=== PATIENT | male | born 1940 | race Caucasian/White ===

== ENCOUNTER 2022-03-18 11:05 | Outpatient (REF) | payer MEDICARE, SELFPAY ==
[2022-03-18 14:04] LABS: Alanine Aminotransferase 20 U/L (0-40); Anion Gap 11 (12-20); Aspartate Amino Transferase 24 U/L (5-37); Blood Urea Nitrogen 17 mg/dL (9-16); Carbon Dioxide 27 mmol/L (22-29); Chloride 101 mmol/L (96-108); Estimated Glomerular Filt Rate > 60; Potassium 4.4 mmol/L (3.3-5.1); Sodium 135 mmol/L (135-145)
[2022-03-20 15:45] LABS: Cyclic Citrullinated Peptide <16 UNITS
== END 2022-03-18 11:06 | disposition home or self-care (01) ==
LOC: HO.10HDL 11:05
PROVIDERS: Visit Provider Family Medicine
DX: I10 Essential (primary) hypertension (principal); E78.00 Pure hypercholesterolemia, unspecified; M06.9 Rheumatoid arthritis, unspecified; Z79.899 Other long term (current) drug therapy
CPT/HCPCS: 36415; 80051; 82550; 82565; 84450; 84460; 84520; 86200

== ENCOUNTER 2022-04-24 09:27 | Outpatient (REF) | payer MEDICARE, SELFPAY ==
[2022-04-24 10:51] LABS: Alanine Aminotransferase 18 U/L (0-40); Aspartate Amino Transferase 22 U/L (5-37); Cholesterol 155 mg/dL; HDL Cholesterol 83 mg/dL; LDL Cholesterol Calculated 63 mg/dl; Triglycerides 49 mg/dL
[2022-04-27 04:52] LABS: Prolactin 8.1 ng/mL (2.0-18.0)
== END 2022-04-24 09:28 | disposition home or self-care (01) ==
LOC: HO.10HDL 09:27
PROVIDERS: Internal Medicine Cardiovascular Disease; Visit Provider Family Medicine
DX: E78.00 Pure hypercholesterolemia, unspecified (principal)
CPT/HCPCS: 36415; 80061; 84146; 84450; 84460

== ENCOUNTER 2023-12-21 12:31 | Outpatient (REF) | payer MEDICARE, SELFPAY ==
[2023-12-21 12:44] LABS: MANUAL DIFF FLAG NO
[2023-12-21 12:45] LABS: Basophils Percent Auto 0.5 % (0-2); Eosinophils Absolute Auto 0.1 X10*3/uL (0.0-0.4); Eosinophils Percent Auto 0.8 % (0-4); Hematocrit 32.6 % (42.0-52.0); Imm Gran Abs Auto 0.04 X10*3/uL (0.00-0.03); Imm Gran Pct Auto 0.5 % (0.0-0.4); Lymphocytes Absolute Auto 0.9 X10*3/uL (1.2-4.9); Lymphocytes Percent Auto 12.1 % (20-40); Mean Corpuscular HGB Conc 33.7 g/dl (31.0-36.0); Mean Corpuscular Hemoglobin 32.4 pg (27.0-33.0); Mean Corpuscular Volume 95.9 fL (80.0-98.0); Mean Platelet Volume 8.6 fL (9.4-12.4); Monocytes Absolute Auto 0.7 X10*3/uL (0.1-1.2); Monocytes Percent Auto 8.9 % (2-11); Neutrophils Percent Auto 77.2 % (45-73); Platelet Count 223 X10*3/uL (160-400); Red Cell Distribution Width 12.8 % (11.0-16.0); White Blood Count 7.8 X10*3/uL (4.8-10.8)
== END 2023-12-21 12:32 | disposition home or self-care (01) ==
LOC: HO.10HDL 12:31
PROVIDERS: Visit Provider Family Medicine
DX: Z13.89 Encounter for screening for other disorder (principal)
CPT/HCPCS: 36415; 85025

== ENCOUNTER 2023-12-21 13:32 | Inpatient (IN) | payer MEDICARE, SELFPAY ==
[2023-12-21] VITALS (8 sets, daily range): BP systolic 112–162; BP diastolic 52–72; PULSE 61–78; RESP 15–18; TEMP 36.7–37; O2SAT 96–98; BMI 33.4
--- NOTE | 2023-12-21 14:02 | ECG_ITS ---
Test Reason : PAIN Blood Pressure : / mmHG Vent. Rate : 063 BPM Atrial Rate : 063 BPM P-R Int : 180 ms QRS Dur : 098 ms QT Int : 390 ms P-R-T Axes : 025 022 028 degrees QTc Int : 399 ms Normal sinus rhythm Possible Inferior infarct , age undetermined Abnormal ECG No previous ECGs available Referred By: Jos Herrera Electronically Signed By:JACKELYN SANCHES
--- NOTE | 2023-12-21 14:02 | ED.GENADULT ---
HPI - General Adult General Chief complaint: GI Bleed Stated complaint: Bleeding in Esophagus Sent By PCP Time Seen by Provider: 12/21/23 14:10 Source: patient and family ( spouse.) Mode of arrival: ambulatory Limitations: no limitations History of Present Illness HPI narrative: 83-year-old male came in for evaluation of black stool x1 day. Patient is scheduled to have upper endoscopy tomorrow, patient was walking into [employer] store when he felt lightheaded and nauseous and fall down declined LOC, similar episode happened last week. No CP, no SOB. For the past 2 years patient get left upper abdominal pain on and off he was told by GI that it is related to gastritis but currently patient has no abdominal pain. Patient takes only baby aspirin daily, no AC, patient drinks 1 martini before dinner every day. Related Data Allergies Allergy/AdvReac Type Severity Reaction Status Date / Time No Known Allergies Allergy Verified 12/21/23 14:04 Review of Systems Review of Systems: all other systems are reviewed and are negative Constitutional: Reports as per HPI and Reports no additional constitutional complaints Eyes: Reports as per HPI and Reports no additional eye complaints Reports system reviewed and no additional complaints, except as documented Cardiovascular: Reports as per HPI and Reports no additional cardiovascular complaints Respiratory: Reports as per HPI and Reports no additional respiratory complaints Gastrointestinal: Reports as per HPI and Reports no additional gastrointestinal complaints Genitourinary: Reports no additional female genitourinary complaints Musculoskeletal: Reports no additional musculoskeletal complaints Skin/Breast: Reports system reviewed and no additional complaints, except as docu Psychiatric: Reports no additional psychiatric complaints Endocrine: Reports no additional endocrine complaints Hematologic/Lymphatic: Reports no additional hematologic/lymphatic complaints Allergic/Immunologic: Reports no additional allergic/immunologic complaints Reports system reviewed and no additional complaints, except as documented and Reports Abnormal speech present [facility] Social History Social History Smoked in Last 30 Days: No Use of substances other than those prescribed or required for medical reasons: No Advance Directives: Yes Advance Directives Information Provided: Yes Advance Directives on File: No Physical Exam ED Vital Signs: Vital Signs - 24 hr 12/21/23 14:02 12/21/23 14:14 12/21/23 14:51 Temperature 98.0 F 98.6 F Pulse Rate 64 78 62 Respiratory Rate 16 16 Blood Pressure 112/67 162/72 H 132/54 L Pulse Oximetry 97 98 Oxygen Delivery Method Room Air Room Air 12/21/23 14:52 12/21/23 14:56 Temperature Pulse Rate 67 68 Respiratory Rate Blood Pressure 133/58 L 121/55 L Pulse Oximetry Oxygen Delivery Method BMI result Body Mass Index 33.4 Vital signs have been reviewed and appear to be correct. Blood pressure elevated. Heart rate normal. Respiratory rate normal. Temperature normal. Oxygen saturation normal. Appearance: Alert. Oriented X3. No acute distress. Head: Normal external exam. Normocephalic. Atraumatic. No Gallo signs noted. No raccoon eyes noted Eyes: PERRLA. EOMI. Conjunctiva and sclera normal. Eyelids normal. ENT: TM's Normal. Pharynx normal. Uvula midline. Moist mucous membranes. No trismus noted. No drooling noted. No muffled voice noted. Neck: Normal inspection. Neck supple. FROM. No adenopathy. Thyroid Normal. No meningeal signs. No neck mass noted. CVS: Normal heart rate and rhythm. Heart sound normal. No murmurs noted. Pulses normal throughout. Respiratory: No respiratory distress. Painless inspiration. Breath sounds normal. No wheezes/rales/rhonchi noted. Chest nontender. No accessory muscle usage noted or decreased air movement noted. Abdomen: Soft and nontender. Bowel sounds normal in all 4 quadrants. No distention noted. No organomegaly noted. No visible injury noted. Rectal exam: Dark stool with hematochezia positive for blood. Back: No CVA tenderness. Full range of motion noted. Skin: Skin warm and dry. Normal skin color. Normal skin turgor. No rashes/lesions/lacerations noted. Extremities: No lower extremity edema. Extremities exhibit normal range of motion. Extremities nontender. Neuro: Oriented X 3. Cranial nerve exam: II-XII are grossly intact No motor deficit. No sensory deficit. Reflexes normal. Course Course Course Narrative: 83-year-old male presents for evaluation of bloody stool. He was sent by Dr. Erickson's office. Patient has a baby aspirin but no anticoagulation. Plan for labs including type and screen Reevaluation(s) Reevaluation #1: 1. Patient described episode of lightheadedness followed by falling down but confirmed no LOC possibly near syncope. 2. Hematochezia due to GI bleed, patient received Protonix, orthostatic vital sign was normal, H&H at baseline with no need for blood transfusion, no coagulopathy or thrombocytopenia. Will admit the patient for further GI workup. Time: 15:39 Medications Administered Discontinued Medications Generic Name Dose Route Start Last Admin Trade Name Freq PRN Reason Stop Dose Admin Pantoprazole Sodium 40 mg 12/21/23 14:28 12/21/23 15:00 Pantoprazole Sodium 40 Mg/10 Ml Vial IVPUSH 12/21/23 14:29 40 mg ONCE ONE Administration Medical Decision Making Differential Diagnosis Differential Diagnoses: The differential diagnosis associated with the presentation includes ( syncope, dysrhythmia, ACS, upper GI bleed, lower GI bleed, severe anemia, electrolyte disturbance, coagulopathy, thrombocytopenia.) Admission/Observation Consideration of admission/observation: Escalation of care including admission/observation considered Consult Healthcare Provider Management of the patient was discussed with: Hospitalist ( Dr. Cortes) Lab Data MDM Lab Attestation statement: I reviewed the patient's lab results. 12/21/23 Unknown 12/21/23 Unknown Labs: Lab Results 12/21/23 12/21/23 12/21/23 Range/Units 14:30 14:31 Unknown WBC 8.1 (4.8-10.8) X10*3/uL RBC 3.49 L (4.60-5.80) X10*6/uL Hgb 11.4 L (14.0-18.0) g/dl Hct 33.3 L (42.0-52.0) % MCV 95.4 (80.0-98.0) fL MCH 32.7 (27.0-33.0) pg MCHC 34.2 (31.0-36.0) g/dl RDW 12.8 (11.0-16.0) % Plt Count 221 (160-400) X10*3/uL MPV 8.8 L (9.4-12.4) fL Immature Gran % (Auto) 0.6 H (0.0-0.4) % Neut % (Auto) 82.3 H (45-73) % Lymph % (Auto) 9.4 L (20-40) % [place] % (Auto) 6.8 (2-11) % Eos % (Auto) 0.4 (0-4) % Baso % (Auto) 0.5 (0-2) % Lymph # (Auto) 0.8 L (1.2-4.9) X10*3/uL [place] # (Auto) 0.6 (0.1-1.2) X10*3/uL Eos # (Auto) 0.0 (0.0-0.4) X10*3/uL Baso # (Auto) 0.0 (0.0-0.2) X10*3/uL Abs Immat Gran (auto) 0.05 H (0.00-0.03) X10*3/uL Absolute Neuts (auto) 6.6 (2.0-8.3) x10*3/uL Absolute Nucleated RBC 0.000 (0.0-0.012) X10*3/uL Nucleated RBC % (auto) 0.0 (0.0-0.2) /100WBC PT 11.9 (11.1-13.3) SEC INR 1.0 (0.9-1.1) APTT 24.4 L (26.0-36.8) SEC Sodium 130 L (135-145) mmol/L Potassium 4.3 (3.3-5.1) mmol/L Chloride 98 (96-108) mmol/L Carbon Dioxide 23 (22-29) mmol/L Anion Gap 13 (12-20) BUN 35 H (9-16) mg/dL Creatinine 0.90 (0.5-1.4) mg/dL Estim Creat Clear Calc 73.4 Estimated GFR > 60 Random Glucose 120 H (60-115) mg/dL Calcium 8.8 (8.4-10.2) mg/dL Total Bilirubin 0.7 (0.0-1.0) mg/dL AST 22 (5-37) U/L ALT 18 (0-40) U/L Alkaline Phosphatase 64 (39-117) U/L Troponin I High Sens 7.7 (<3.5-35.0) ng/L B-Natriuretic Peptide 68 (<100) pg/mL Total Protein 6.5 (6.5-8.0) g/dL Albumin 3.6 (3.5-5.0) g/dL Lipase 15 (8-78) U/L Stool Occult Blood POSITIVE (NEGATIVE) Blood Type A Positive Antibody Screen NEGATIVE Independent Interpretation I performed an independent interpretation of an: EKG ( normal sinus rhythm at 63 beats per minutes, normal intervals, T-wave inversion and flattening in lead 3, AVF.) Discharge Plan Discharge Clinical Impression: Near syncope, Hematochezia Patient Disposition: Admitted As Inpatient Print Language: Indonesian
--- NOTE | 2023-12-21 14:19 | PC.NURSE ---
Pt coming from home, reports black stool this morning (1 episode). Pt reports he called his doctor, saw him today, who sent him to ED for eval, pt has endoscopy scheduled for tomorrow. Pt denies any CP, SOB, nausea, vomiting, fevers, cough. Pt reports he had a dizzy spell at [facility] this morning where he fell (around 11 Am). Pt denies head hit or LOC, witnessed event (at bedside now). Pt noted to have some bruising on left forearm from fall. Pt reports LLQ ABD pain at this time, reports it has been ongoing for weeks, /, reports it feels like a gas pain. Pt is alert and oriented, breathing even and unlabored, skin pale and dry. Pt is on bedside night monitor, NSR.
[2023-12-21 14:42] LABS: MANUAL DIFF FLAG NO
[2023-12-21 14:43] LABS: OBS Int Ctl Valid YES; OBS1 POSITIVE (NEGATIVE)
[2023-12-21 14:44] LABS: Basophils Percent Auto 0.5 % (0-2); Eosinophils Percent Auto 0.4 % (0-4); Hematocrit 33.3 % (42.0-52.0); Hemoglobin 11.4 g/dl (14.0-18.0); Imm Gran Abs Auto 0.05 X10*3/uL (0.00-0.03); Imm Gran Pct Auto 0.6 % (0.0-0.4); Lymphocytes Absolute Auto 0.8 X10*3/uL (1.2-4.9); Lymphocytes Percent Auto 9.4 % (20-40); Mean Corpuscular HGB Conc 34.2 g/dl (31.0-36.0); Mean Corpuscular Hemoglobin 32.7 pg (27.0-33.0); Mean Corpuscular Volume 95.4 fL (80.0-98.0); Mean Platelet Volume 8.8 fL (9.4-12.4); Monocytes Absolute Auto 0.6 X10*3/uL (0.1-1.2); Monocytes Percent Auto 6.8 % (2-11); Neutrophils Absolute Auto 6.6 x10*3/uL (2.0-8.3); Neutrophils Percent Auto 82.3 % (45-73); Platelet Count 221 X10*3/uL (160-400); Red Blood Count 3.49 X10*6/uL (4.60-5.80); Red Cell Distribution Width 12.8 % (11.0-16.0); White Blood Count 8.1 X10*3/uL (4.8-10.8)
[2023-12-21 14:50] LABS: Prothrombin Time 11.9 SEC (11.1-13.3)
[2023-12-21 14:53] LABS: Partial Thromboplastin Time 24.4 SEC (26.0-36.8)
[2023-12-21 14:59] LABS: Alanine Aminotransferase 18 U/L (0-40); Albumin Level 3.6 g/dL (3.5-5.0); Alkaline Phosphatase 64 U/L (39-117); Anion Gap 13 (12-20); Aspartate Amino Transferase 22 U/L (5-37); Bilirubin Total 0.7 mg/dL (0.0-1.0); Blood Urea Nitrogen 35 mg/dL (9-16); Calcium 8.8 mg/dL (8.4-10.2); Carbon Dioxide 23 mmol/L (22-29); Chloride 98 mmol/L (96-108); Creatinine Clr Calc Pharmacy 73.4; Estimated Glomerular Filt Rate > 60; Glucose Random 120 mg/dL (60-115); Lipase 15 U/L (8-78); Potassium 4.3 mmol/L (3.3-5.1); Sodium 130 mmol/L (135-145); Total Protein 6.5 g/dL (6.5-8.0)
[2023-12-21] MEDS: Pantoprazole Sodium 40 MG/10 ML VIAL IVPUSH (15:00)
[2023-12-21 15:04] LABS: Troponin-I High Sensitivity 7.7 ng/L (<3.5-35.0)
[2023-12-21 15:11] LABS: B Type Natriuretic Peptide 68 pg/mL (<100)
--- NOTE | 2023-12-21 16:11 | PHA.MEDREC ---
Pharmacy Consult ? Medication Reconciliation Pharmacy has completed the medication reconciliation. Patient has update list of medications. Reports he took meds this morning. Yenni Gage, KatyD
--- NOTE | 2023-12-21 17:15 | PM.IMHP ---
History of Present Illness Date of Service: 12/21/23 Chief Complaint: Near-syncope 83-year-old gentleman with past medical history significant for coronary artery disease status post three-vessel CABG in 2018, history of hypertension, hyperlipidemia, BPH, question of epilepsy, bilateral total knee arthroplasty, chronic back pain, former smoker on chronic twice daily Tylenol arthritis medication on baby aspirin presented to [facility] [place] due to an episode of near-syncope according to patient and his at bedside patient was coming out of car when he felt lightheaded and fell down hitting his left elbow without loss of consciousness, no head injury, he denies associated symptoms of chest pain, no shortness of breath no recent bout of nausea, vomiting, diarrhea, no urinary symptoms of urgency frequency, no fevers or chills, patient had a similar episode of feeling lightheaded 9 days ago when he stood up from a table at a 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 Review of Systems Review of Systems: General no headache,no fever,no chills. CVS no chest pain, no palpitation. Respiratory no cough, no sob. Gastrointestinal no nausea no vomiting, no abdominal pain no urinary urgency, no frequency Skin no rash All other system reviewed and negative [facility] Medical History (Updated 12/22/23 @ 12:53 by Abby Pack MD) Osteoporosis Arthritis Syncope Dizziness Hypercholesteremia Coronary artery disease Myocardial infarction Pertinent family history: No family history of premature coronary artery disease Surgical History (Updated 12/22/23 @ 12:30 by Lisa Chawla RN) Hx of CABG History of total hip replacement History of total knee replacement Social History Household Members: Spouse Housing: House Patient Tobacco Use Status: Former Tobacco user Smoked in Last 30 Days: No e-Cigarette/Vaping Use: Never Used Patient Interested in Nicotine Replacement: No Patient Given Instructions on How to Stop Smoking: No Second Hand Smoke Exposure: No Use of substances other than those prescribed or required for medical reasons: No Currently Displaying Signs/Symptoms of Drug Intoxication Withdrawal: No Any prior treatment program specific to substance use: No Have you been hit, kicked, punched, or otherwise hurt by someone within the past year? If so, by whom?: No Do you feel safe in your current relationship?: Yes Is there a partner from a previous relationship who is making you feel unsafe now?: No Are you made to feel afraid or neglected: No Are you DNR?: No Advance Directives: Yes Advance Directives Information Provided: Yes Advance Directives on File: No Advance Directives Date on File: 12/22/23 Do you have thoughts of harming others: None Do you have a plan to hurt others: No Plan Recently lost weight without trying: Yes How much weight loss: 2-13 pounds Eating poorly because of decreased appetite: No Nutrition screen score: 3 Nutrition Risks: No Nutritional Risk Poor oral hygiene: No service: No Meds Allergies Allergy/AdvReac Type Severity Reaction Status Date / Time No Known Allergies Allergy Verified 12/21/23 14:04 Active Medications: Current Medications Acetaminophen (Acetaminophen 325 Mg Tablet) 650 mg PO Q6H PRN PRN Reason: Pain, Mild (Pain Scale 1-3) Atorvastatin Calcium (Atorvastatin Calcium 40 Mg Tablet) 40 mg PO DAILY JORGE LUIS Docusate Sodium (Docusate Sodium 100 Mg Capsule) 100 mg PO DAILY PRN PRN Reason: Constipation Levetiracetam (Levetiracetam 500 Mg Tablet) 500 mg PO BID JORGE LUIS Magnesium Hydroxide (Milk Of Magnesia 30 Ml Oral.Susp) 30 ml PO DAILY PRN PRN Reason: Constipation Melatonin (Melatonin 3 Mg Tablet) 6 mg PO BEDTIME PRN PRN Reason: Insomnia Multivitamins/Vitamin C (Multivitamin Tablet) 1 tab PO BEDTIME [facility] Ondansetron HCl (Ondansetron Hcl 4 Mg/2 Ml Vial) 4 mg IVPUSH Q8H PRN PRN Reason: Nausea and Vomiting Sodium Chloride (0.9 % Sodium Chloride Flush 3 Ml Syringe) 3 ml IVFLUSH QSHIFT [facility] Tamsulosin HCl (Tamsulosin Hcl 0.4 Mg Capsule) 0.4 mg PO BEDTIME [facility] Home Medications ?Medication ?Instructions ?Recorded ?Confirmed ?Last Taken ?Type acetaminophen 650 mg 650 mg PO BID 12/21/23 12/21/23 12/21/23 History tablet,extended release aspirin 81 mg chewable tablet 81 mg PO DAILY 12/21/23 12/21/23 12/21/23 History atorvastatin 40 mg tablet 40 mg PO DAILY 12/21/23 12/21/23 12/21/23 History levetiracetam 500 mg tablet 500 mg PO BID 12/21/23 12/21/23 12/21/23 History metoprolol succinate 25 mg 25 mg PO DAILY 12/21/23 12/21/23 12/21/23 History tablet,extended release 24 hr multivitamin 1 tab PO BEDTIME 12/21/23 12/21/23 12/20/23 History tamsulosin 0.4 mg capsule 0.4 mg PO BEDTIME 12/21/23 12/21/23 12/20/23 History Physical Exam Vital Signs and Narrative: Vital Signs: Last Vital Signs Temp 98.6 F 12/21/23 14:14 Pulse 68 12/21/23 14:56 Resp 16 12/21/23 14:14 BP 121/55 L 12/21/23 14:56 Pulse Ox 98 12/21/23 14:14 O2 Del Method Room Air 12/21/23 14:14 BMI result Body Mass Index 33.4 Const: Other: General awake alert x3, resting comfortably in no acute distress. Anicteric sclera Neck supple no JVD. CVS regular rate rhythm, Respiratory lungs clear to auscultation, no respiratory distress, no wheeze, no rhonchi. Gastrointestinal abdomen soft, non tender, bowel sounds audible, no guarding , no rigidity. Extremities no edema. Neuro non focal Skin no rash Psych appropriate affect Results Labs 12/22/23 06:23 12/22/23 06:23 Labs: Laboratory Results - last 24 hr 12/21/23 12/21/23 12/21/23 14:30 14:31 Unknown MCV 95.4 MCH 32.7 MCHC 34.2 RDW 12.8 Plt Count 221 MPV 8.8 L Immature Gran % (Auto) 0.6 H Neut % (Auto) 82.3 H Lymph % (Auto) 9.4 L [place] % (Auto) 6.8 Eos % (Auto) 0.4 Baso % (Auto) 0.5 Lymph # (Auto) 0.8 L [place] # (Auto) 0.6 Eos # (Auto) 0.0 Baso # (Auto) 0.0 Abs Immat Gran (auto) 0.05 H Absolute Neuts (auto) 6.6 Absolute Nucleated RBC 0.000 Nucleated RBC % (auto) 0.0 PT 11.9 INR 1.0 APTT 24.4 L Anion Gap 13 Estim Creat Clear Calc 73.4 Estimated GFR > 60 Random Glucose 120 H Calcium 8.8 Total Bilirubin 0.7 AST 22 ALT 18 Alkaline Phosphatase 64 Troponin I High Sens 7.7 B-Natriuretic Peptide 68 Total Protein 6.5 Albumin 3.6 Lipase 15 Stool Occult Blood POSITIVE Blood Type A Positive Antibody Screen NEGATIVE Assessment and Plan (1) Gastrointestinal hemorrhage with melena: Status: Acute (2) Hx of CABG: Status: Inactive (3) Near syncope: Status: Acute (4) Hematochezia: Status: Acute Plan 83-year-old gentleman with past medical history of coronary artery disease status post three-vessel CABG, hypertension, hyperlipidemia presented to [facility] [place] due to 2 episodes of near-syncope in last 10 days and noted to have dark colored stool today hematocrit is low , baseline not available will admit patient to [facility] [place] with diagnosis of near syncope and dark stools. Near-syncope Question etiology, negative orthostatic blood pressures , mild hyponatremia No chest pain, normal EKG, no seizure-like activity Admit to telemetry, rule out arrhythmia, follow labs Acute upper GI bleed with Dark-colored stools, guaiac positive Patient is symptomatic/near-syncope Low hematocrit, no baseline CBC available Follow CBC GI consult/hold aspirin/NPO after midnight Acute hyponatremia low normal serum osmolality and urine osmolality likely due to excessive fluid intake will follow BMP History of coronary artery disease status post CABG No chest pain, continue home medication, metoprolol, Lipitor, hold aspirin Seizure disorder continue home medication seizure precautions Class 1 obesity recommend weight reduction DVT prophylaxis with compression boot In my clinical judgment patient need to night inpatient hospitalization for management of near-syncope/upper GI bleed requiring expert consultation and close CBC monitoring. Quality Stroke Does the patient have a stroke diagnosis?: No VTE Prior VTE?: No VTE Risk Level:: Medical - moderate - high VTE Device Contraindication: N/A - Device Ordered VTE Drug Contraindication: Treatment Not Indicated
[2023-12-21 18:50] LABS: Osmolality, Serum 281 mosm/kg (281-305)
[2023-12-21 19:21] LABS: Appearance Urine Clear; Color Urine Yellow; Glucose Urine UA Negative (Negative); Leukocyte Esterase Urine Negative (Negative); Nitrite Urine Negative (Negative); PH 5.5 (5.0-9.0); Urine Blood Negative (Negative); Urine Ketones Negative (Negative); Urine Protein Negative (Neg-Trace)
[2023-12-21 19:23] LABS: Bacteria Urine None Seen (None Seen); Hyaline Casts Urine 0-2 /LPF (0-2); RBC Urine 0-2 /HPF (0-2); Squamous Epithelial Cell Urine 0-2 /HPF (0-2); WBC Urine 0-5 /HPF (0-5)
[2023-12-21 19:32] LABS: Osmolality Urine 557 mosm/kg (373-1093)
[2023-12-21] MEDS: levETIRAcetam 500 MG TABLET PO (20:46)
[2023-12-21] MEDS: Tamsulosin HCL 0.4 MG CAPSULE PO (20:46)
[2023-12-21] MEDS: Multivitamin TABLET 1 TAB PO (20:46)
[2023-12-22] VITALS (7 sets, daily range): BP systolic 104–154; BP diastolic 47–69; PULSE 48–90; RESP 16–20; TEMP 36.2–36.9; O2SAT 96–98
[2023-12-22 06:43] LABS: Hematocrit 27.1 % (42.0-52.0); Hemoglobin 9.2 g/dl (14.0-18.0); Mean Corpuscular HGB Conc 33.9 g/dl (31.0-36.0); Mean Corpuscular Hemoglobin 31.8 pg (27.0-33.0); Mean Corpuscular Volume 93.8 fL (80.0-98.0); Mean Platelet Volume 8.8 fL (9.4-12.4); Platelet Count 185 X10*3/uL (160-400); Red Blood Count 2.89 X10*6/uL (4.60-5.80); Red Cell Distribution Width 12.8 % (11.0-16.0); White Blood Count 6.8 X10*3/uL (4.8-10.8)
[2023-12-22 07:00] LABS: Anion Gap 8 (12-20); Blood Urea Nitrogen 27 mg/dL (9-16); Calcium 8.6 mg/dL (8.4-10.2); Carbon Dioxide 25 mmol/L (22-29); Chloride 103 mmol/L (96-108); Creatinine Clr Calc Pharmacy 86.9; Estimated Glomerular Filt Rate > 60; Glucose Random 112 mg/dL (60-115); Potassium 4.3 mmol/L (3.3-5.1); Sodium 132 mmol/L (135-145)
[2023-12-22 07:17] LABS: Thyroid Stimulating Hormone 1.55 uIU/mL (0.32-4.0)
[2023-12-22] MEDS: Metoprolol Succinate ER 25 MG TAB.ER.24H PO (08:09)
[2023-12-22] MEDS: levETIRAcetam 500 MG TABLET PO ×2 (08:09→21:07)
[2023-12-22] MEDS: Atorvastatin Calcium 40 MG TABLET PO (08:09)
--- NOTE | 2023-12-22 08:14 | PC.NURSE ---
this RN resumed care of pt at this time. a&ox4. vss and up to date. nsr on the prescription clerk lenses. pt denies pain at this time. denies feeling lightheaded/dizzy at rest - pt states he has a sudden onset of dizziness when he gets up to use the restroom. pt educated on use of call arguello and safety prior to getting out of bed to prevent any falls. medication administered per provider order. report given to admission RN. pt aware that transportation will come to get him shortly. no sob/wob noted. respirations even and unlabored. pt resting comfortably in bed in no apparent distress. plan of care ongoing. call arguello placed within reach.
--- NOTE | 2023-12-22 09:24 | P.CNGI_ITS ---
History of Present Illness Data of Consult Service Date: 12/22/23 Requesting physician: Fadumo Cortes Primary Care Provider: Harsha Erickson MD HPI Reason for consult: anemia 83-year-old gentleman with past medical history significant for coronary artery disease status post three-vessel CABG in 2018 (on aspirin), history of hypertension, hyperlipidemia, BPH, question of epilepsy, bilateral total knee arthroplasty, chronic back pain, who I am seeing for assessment for anemia. Patient initially presented due to pre syncopal event, with lightheadedness and fall hitting his left elbow without LOC. He had recentyly noted one episode of black colored stools yesterday morning . denies associated epigastric discomfort, no hematemesis, no chest pain, no shortness of breath no recent bout of nausea, vomiting, diarrhea. Last few weeks appetite has been poor. He denies taking any other nsaids. 5# weight loss over last several weeks Labs revealed hematocrit of 33.3 no prior CBC is available for comparison,. HGB today down furthher at around 9 g/dl--still reports seeing black colored stools EKG neg for acute cardiac event Review of Systems 2 Review of Systems: Constitutional : No Weight loss, No Fever, No Chills ENT/Mouth : No sore throat, No Rhinorrhea Eyes: No Swelling, No Redness Cardiovascular : No Chest Pain, No SOB, No Edema Respiratory : No Cough, No Sputum, No Wheezing Gastrointestinal : see HPI Genitourinary : NO Dysuria, No Urinary Frequency, No Hematuria, No Urgency Musculoskeletal : + joint pain, No Myalgias, No Joint Swelling Skin : No Skin Lesions, No rash Neuro : No Weakness, No Numbness, No Dizziness, No Headache Psych : No Anxiety/Panic, No Depression Heme/Lymph: No Bruising, No Lymphadenopathy Endocrine : No Polyuria, No Polydipsia All other systems reviewed and are negative. [facility] Past Medical History Medical History (Updated 12/22/23 @ 12:53 by Abby Pack MD) Osteoporosis Arthritis Syncope Dizziness Hypercholesteremia Coronary artery disease Myocardial infarction Family History Pertinent family history: no FH of PUD Surgical History Surgical History (Updated 12/22/23 @ 12:30 by Lisa Chawla RN) Hx of CABG History of total hip replacement History of total knee replacement Social History Social History Household Members: Spouse Housing: House Patient Tobacco Use Status: Former Tobacco user e-Cigarette/Vaping Use: Never Used Second Hand Smoke Exposure: No Advance Directives Date on File: 12/22/23 Meds Allergies Allergy/AdvReac Type Severity Reaction Status Date / Time No Known Allergies Allergy Verified 12/21/23 14:04 Active Medications: Current Medications Acetaminophen (Acetaminophen 325 Mg Tablet) 650 mg PO Q6H PRN PRN Reason: Pain, Mild (Pain Scale 1-3) Atorvastatin Calcium (Atorvastatin Calcium 40 Mg Tablet) 40 mg PO DAILY [facility] Last Admin: 12/22/23 08:09 Dose: 40 mg Docusate Sodium (Docusate Sodium 100 Mg Capsule) 100 mg PO DAILY PRN PRN Reason: Constipation Levetiracetam (Levetiracetam 500 Mg Tablet) 500 mg PO BID [facility] Last Admin: 12/22/23 08:09 Dose: 500 mg Magnesium Hydroxide (Milk Of Magnesia 30 Ml Oral.Susp) 30 ml PO DAILY PRN PRN Reason: Constipation Melatonin (Melatonin 3 Mg Tablet) 6 mg PO BEDTIME PRN PRN Reason: Insomnia Metoprolol Succinate (Metoprolol Succinate Er 25 Mg Tab.Er.24h) 25 mg PO DAILY [facility]; Protocol Last Admin: 12/22/23 08:09 Dose: 25 mg Multivitamins/Vitamin C (Multivitamin Tablet) 1 tab PO BEDTIME [facility] Last Admin: 12/21/23 20:46 Dose: 1 tab Ondansetron HCl (Ondansetron Hcl 4 Mg/2 Ml Vial) 4 mg IVPUSH Q8H PRN PRN Reason: Nausea and Vomiting Sodium Chloride (0.9 % Sodium Chloride Flush 3 Ml Syringe) 3 ml IVFLUSH QSHIFT [facility] Last Admin: 12/22/23 00:57 Dose: Not Given Tamsulosin HCl (Tamsulosin Hcl 0.4 Mg Capsule) 0.4 mg PO BEDTIME [facility] Last Admin: 12/21/23 20:46 Dose: 0.4 mg Home Medications ?Medication ?Instructions ?Recorded ?Confirmed ?Last Taken ?Type acetaminophen 650 mg 650 mg PO BID 12/21/23 12/21/23 12/21/23 History tablet,extended release aspirin 81 mg chewable tablet 81 mg PO DAILY 12/21/23 12/21/23 12/21/23 History atorvastatin 40 mg tablet 40 mg PO DAILY 12/21/23 12/21/23 12/21/23 History levetiracetam 500 mg tablet 500 mg PO BID 12/21/23 12/21/23 12/21/23 History metoprolol succinate 25 mg 25 mg PO DAILY 12/21/23 12/21/23 12/21/23 History tablet,extended release 24 hr multivitamin 1 tab PO BEDTIME 12/21/23 12/21/23 12/20/23 History tamsulosin 0.4 mg capsule 0.4 mg PO BEDTIME 12/21/23 12/21/23 12/20/23 History Physical Exam 2 Vital Signs: Vital Signs: Last Vital Signs Temp 98.4 F 12/22/23 07:23 Pulse 58 12/22/23 07:23 Resp 19 12/22/23 07:23 BP 104/53 L 12/22/23 07:23 Pulse Ox 98 12/22/23 07:23 O2 Del Method Room Air 12/22/23 07:23 BMI result Body Mass Index 33.4 EXAM: GENERAL: The patient is well developed and nontoxic. slightly pale VITAL SIGNS:see workflow HEENT: Nonicteric sclerae, PERRLA, EOMI. Oropharynx clear. Moist mucous membranes. Conjunctivae appear well perfused. No thyroid mass. CHEST: Chest wall is nontender. HEART: Regular rate and rhythm without murmurs. LUNGS: Clear to auscultation bilaterally. ABDOMEN: Soft, positive bowel sounds, nontender, no organomegaly.no flank tenderness SKIN: No rash, petechiae, or purpura. bruise over left elbow NEUROLOGIC: Cranial nerves II-XII intact without motor/sensory deficit. Psych: normal affect Results Labs 12/22/23 06:23 12/22/23 06:23 Labs: Short CBC 12/21/23 12/22/23 Range/Units Unknown 06:23 WBC 8.1 6.8 (4.8-10.8) X10*3/uL Hgb 11.4 L 9.2 L (14.0-18.0) g/dl Hct 33.3 L 27.1 L (42.0-52.0) % Plt Count 221 185 (160-400) X10*3/uL BMP 12/21/23 12/22/23 Unknown 06:23 Sodium 130 L 132 L Potassium 4.3 4.3 Chloride 98 103 Carbon Dioxide 23 25 BUN 35 H 27 H Creatinine 0.90 0.76 Calcium 8.8 8.6 Liver Function 12/21/23 Range/Units Unknown Total Bilirubin 0.7 (0.0-1.0) mg/dL AST 22 (5-37) U/L ALT 18 (0-40) U/L Alkaline Phosphatase 64 (39-117) U/L Albumin 3.6 (3.5-5.0) g/dL Urine 12/21/23 Range/Units 19:13 Urine Color Yellow Urine Appearance Clear Urine pH 5.5 (5.0-9.0) Ur Specific Johnston 1.020 (1.005-1.025) Urine Protein Negative (Neg-Trace) mg/dL Urine Glucose (UA) Negative (Negative) mg/dL Assessment and Plan (1) Hx of CABG: Status: Inactive (2) Gastrointestinal hemorrhage with melena: Status: Acute Plan 1/ Melena with acute blood loss anemia, possible from PUD 2/2 aspirin use, ddx: neoplasia, AVm, dieulafoy, right sided colonic lesion (he has never had a colonoscopy) PLAN: /1 - PPi as doing 2/ EGDtoday for further assessment with posisble push enteroscopy --if neg then colonoscopy tomorrow 3/ transfuse if HGB <8 g/dl, aim for aroound 9-10 g/dl as target 4/ hold aspiirn for the moment Procedures Date of Service Date of Service: 12/22/23
[2023-12-22] MEDS: Pantoprazole Sodium 40 MG/10 ML VIAL IVPUSH ×2 (09:45→16:20)
[2023-12-22] MEDS: 0.9 % Sodium Chloride Flush 3 ML SYRINGE IVFLUSH ×2 (09:49→23:26)
--- NOTE | 2023-12-22 13:23 | MHC.SHP ---
Pre-Procedural Eval Section A - 24 Hr Update-Section A only Date of Service: 12/22/23 The patient is an INPATIENT: Yes The patient has been examined within 24 hours of the surgical procedure. The History & Physical has been completed within 30 days and I have reviewed it.: Yes Section B - Complete if H&P > 30 days Chief Complaint: Bleeding in Esophagus Sent By PCP Allergies: Allergies Allergy/AdvReac Type Severity Reaction Status Date / Time No Known Allergies Allergy Verified 12/21/23 14:04 Plan Diagnosis/Plan: Unchanged I have reviewed the history and physical and performed a pertinent physical examination on my patient. No changes have occurred unless specified. Time Spent With Patient Time: Total time managing care of this patient today ____ minutes.
--- NOTE | 2023-12-22 13:35 | W.PM.OPN ---
Operative Note Operative Note Date of Service: 12/22/23 Narrative: Procedure Description: EGD Indication: anemia, melena Anesthesia: MAC FLEXIBLE TRANSORAL UPPER GASTROINTESTINAL ENDOSCOPY UPPER ENDOSCOPY Consent: Indications for the procedure and potential complications of bleeding, perforation, reaction to medications and missed diagnosis were discussed with the patient and informed consent was obtained. Instrument: Olympus GIF H 190 J mid size upper endoscope Monitoring: Vital signs and clinical assessment, continuous EKG monitoring, Pulse oximetry, Carbon Dioxide monitoring and blood pressure monitoring were done throughout the procedure. Procedure: The patient was placed in the left lateral decubitis position and pre-procedure medications were administered and a bite block was placed. The endoscope was inserted into the mouth and advanced under direct vision to the third part of duodenum. A careful inspection was made as the upper endoscope was withdrawn including a retroflexed examination of the proximal stomach; Findings and interventions are described below. Findings: Larynx:normal Esophagus: GE junction at 42 cm, diaphragm hiatus at 42 cm, normal mucosa Stomach: deep ulcer noted on the posterior wall in the pre antral area, about 10 mm in diameter, bx taekn and then ovesco clip used to close the defect, no active bleeding noted but given the depth of the ulcer felt it was prudent to close with the clip . Biopsies were obtained from adjacent folds and random stomach . Grade 2 flap valve on retroflexed examination of the cardia. Duodenum: Normal bulb and descending duodenum, Intervention: Biopsies as noted above, ovesco clip placement Impression/Findings: gastric ulcer PLAN: ulcer possibly from aspirin use PPI e.g pantoprazole 40 mg once daily if h pylori pos treat restart aspirin tomorrow repeat EGD 3-4 months to document if healed
--- NOTE | 2023-12-22 14:08 | PC.NURSE ---
Patient refusing bed alarm to be in place. Patient alert and oriented x 4. Educated on importance of bed alarm for safety due to syncopal episode at home. Patient encouraged to ring call arguello and ask for assistance from staff.
--- NOTE | 2023-12-22 15:01 | MHC.CM.PN ---
IMM 12/21. Pt self-care, lives at home with his who will transport him home. Pt uses a cane. Received HCP from [facility], now on file and verified. PCP: Dr. Harsha Erickson
--- NOTE | 2023-12-22 15:15 | HO.PM.IMPN ---
Subjective Subjective Date of Service: 12/22/23 Interval History: Had 1 more episode of dark stools, denies pain, is NPO for upper endoscopy, Noted to have drop in hematocrit this morning, no nausea, no hematemesis, no lightheadedness or headache, no acute events overnight. Review of Systems All other system reviewed and negative. Physical Exam Vital Signs: Vital Signs: Last Vital Signs Temp 98.3 F 12/22/23 14:25 Pulse 50 12/22/23 14:25 Resp 20 12/22/23 14:25 BP 128/55 L 12/22/23 14:25 Pulse Ox 97 12/22/23 14:25 O2 Del Method Room Air 12/22/23 14:25 O2 Flow Rate 3 12/22/23 14:10 BMI result Body Mass Index 33.4 Const: Other: General awake alert x3, resting comfortably in no acute distress. Anicteric sclera Neck supple no JVD. CVS regular rate rhythm, Respiratory lungs clear to auscultation, no respiratory distress, no wheeze, no rhonchi. Gastrointestinal abdomen soft, non tender, bowel sounds audible, no guarding , no rigidity. Extremities no edema. Neuro non focal Skin no rash/pallor Psych appropriate affect Objective Data Active Medications Acetaminophen (Acetaminophen 325 Mg Tablet) 650 mg PO Q6H PRN PRN Reason: Pain, Mild (Pain Scale 1-3) Atorvastatin Calcium (Atorvastatin Calcium 40 Mg Tablet) 40 mg PO DAILY [facility] Last Admin: 12/22/23 08:09 Dose: 40 mg Documented By: RASHID Docusate Sodium (Docusate Sodium 100 Mg Capsule) 100 mg PO DAILY PRN PRN Reason: Constipation Levetiracetam (Levetiracetam 500 Mg Tablet) 500 mg PO BID [facility] Last Admin: 12/22/23 08:09 Dose: 500 mg Documented By: RASHID Magnesium Hydroxide (Milk Of Magnesia 30 Ml Oral.Susp) 30 ml PO DAILY PRN PRN Reason: Constipation Melatonin (Melatonin 3 Mg Tablet) 6 mg PO BEDTIME PRN PRN Reason: Insomnia Metoprolol Succinate (Metoprolol Succinate Er 25 Mg Tab.Er.24h) 25 mg PO DAILY [facility]; Protocol Last Admin: 12/22/23 08:09 Dose: 25 mg Documented By: RASHID Multivitamins/Vitamin C (Multivitamin Tablet) 1 tab PO BEDTIME [facility] Last Admin: 12/21/23 20:46 Dose: 1 tab Documented By: RUBEN Ondansetron HCl (Ondansetron Hcl 4 Mg/2 Ml Vial) 4 mg IVPUSH Q8H PRN PRN Reason: Nausea and Vomiting Pantoprazole Sodium (Pantoprazole Sodium 40 Mg/10 Ml Vial) 40 mg IVPUSH BID@0630,1630 [facility] Last Admin: 12/22/23 09:45 Dose: 40 mg Documented By: JOVITA Sodium Chloride (0.9 % Sodium Chloride Flush 3 Ml Syringe) 3 ml IVFLUSH QSHIFT [facility] Last Admin: 12/22/23 09:49 Dose: 3 ml Documented By: JOVITA Tamsulosin HCl (Tamsulosin Hcl 0.4 Mg Capsule) 0.4 mg PO BEDTIME [facility] Last Admin: 12/21/23 20:46 Dose: 0.4 mg Documented By: RUBEN Labs 12/22/23 06:23 12/22/23 06:23 Labs: Laboratory Results - last 24 hr 12/21/23 12/21/23 12/21/23 14:30 18:38 19:13 MCV MCH MCHC RDW Plt Count MPV Absolute Nucleated RBC Nucleated RBC % (auto) Anion Gap Estim Creat Clear Calc Estimated GFR Random Glucose Osmolality 281 Calcium TSH Urine Color Yellow Urine Appearance Clear Urine pH 5.5 Ur Specific Mcmillan 1.020 Urine Protein Negative Urine Glucose (UA) Negative Urine Ketones Negative Urine Blood Negative Urine Nitrite Negative Ur Leukocyte Esterase Negative Urine RBC 0-2 Urine WBC 0-5 Ur Squamous Epith Cells 0-2 Urine Bacteria None Seen Hyaline Casts 0-2 Urine Osmolality 557 Blood Type A Positive Antibody Screen NEGATIVE 12/22/23 06:23 MCV 93.8 MCH 31.8 MCHC 33.9 RDW 12.8 Plt Count 185 MPV 8.8 L Absolute Nucleated RBC 0.000 Nucleated RBC % (auto) 0.0 Anion Gap 8 L Estim Creat Clear Calc 86.9 Estimated GFR > 60 Random Glucose 112 Osmolality Calcium 8.6 TSH 1.55 Urine Color Urine Appearance Urine pH Ur Specific Mcmillan Urine Protein Urine Glucose (UA) Urine Ketones Urine Blood Urine Nitrite Ur Leukocyte Esterase Urine RBC Urine WBC Ur Squamous Epith Cells Urine Bacteria Hyaline Casts Urine Osmolality Blood Type Antibody Screen Assessment and Plan (1) Gastrointestinal hemorrhage with melena: Status: Acute (2) Hx of CABG: Status: Inactive (3) Hematochezia: Status: Acute (4) Near syncope: Status: Acute Plan 83-year-old gentleman with past medical history of coronary artery disease status post three-vessel CABG, hypertension, hyperlipidemia presented to [facility] due to 2 episodes of near-syncope in last 10 days and noted to have dark colored stool today hematocrit is low , baseline not available will admit patient to [facility] with diagnosis of near syncope and dark stools. Near-syncope Likely due to anemia,( baseline not available) negative orthostatic blood pressures , mild hyponatremia No chest pain, normal EKG, no seizure-like activity no arrhythmia on tele monitor, sodium improved to 132, TSH 1.55 Follow iron studies and CBC Acute upper GI bleed with Dark-colored stools, guaiac positive Underwent upper endoscopy by Dr. Pack that showed Esophagus: GE junction at 42 cm, diaphragm hiatus at 42 cm, normal mucosa Stomach: deep gastric ulcer noted on the posterior wall in the pre antral area, about 10 mm in diameter, bx taken and then ovesco clip used to close the defect, no active bleeding noted Biopsies were obtained from adjacent folds and random stomach . Grade 2 flap valve on retroflexed examination of the cardia. Duodenum: Normal bulb and descending duodenum, PLAN: ulcer possibly from aspirin use/resume diet/check iron studies Continue pantoprazole 40 mg once daily Follow biopsy report and h pylori restart aspirin tomorrow repeat EGD 3-4 months to document if healed If remains H&H stable will DC home at a.m. Acute hyponatremia low normal serum osmolality and urine osmolality likely due to excessive fluid intake, recommend to limit fluids to 1.5 L Sodium improved from 130-132 will follow BMP History of coronary artery disease status post CABG No chest pain, continue home medication, metoprolol, Lipitor, hold aspirin and resume at a.m. Seizure disorder continue home medication seizure precautions Class 1 obesity recommend weight reduction DVT prophylaxis with compression boot In my clinical judgment patient need continued inpatient hospitalization for management of near-syncope/upper GI bleed requiring close CBC monitoring Quality Stroke Does the patient have a stroke diagnosis?: No VTE Prior VTE?: No VTE Risk Level:: Medical - moderate - high VTE Device Contraindication: N/A - Device Ordered VTE Drug Contraindication: Treatment Not Indicated
[2023-12-22] MEDS: Tamsulosin HCL 0.4 MG CAPSULE PO (21:07)
[2023-12-22] MEDS: Multivitamin TABLET 1 TAB PO (21:08)
[2023-12-23] VITALS: BP 101/53; PULSE 69; RESP 16; TEMP 36.4; O2SAT 96
[2023-12-23 04:00] VITALS: BP 109/57; PULSE 84; RESP 16; TEMP 36.2; O2SAT 94
[2023-12-23] MEDS: Pantoprazole Sodium 40 MG/10 ML VIAL IVPUSH (05:55)
[2023-12-23 06:04] LABS: Hemoglobin 9.2 g/dl (14.0-18.0); Mean Corpuscular HGB Conc 34.1 g/dl (31.0-36.0); Mean Corpuscular Hemoglobin 32.3 pg (27.0-33.0); Mean Corpuscular Volume 94.7 fL (80.0-98.0); Mean Platelet Volume 8.8 fL (9.4-12.4); Platelet Count 188 X10*3/uL (160-400); Red Blood Count 2.85 X10*6/uL (4.60-5.80); Red Cell Distribution Width 12.7 % (11.0-16.0)
[2023-12-23 06:19] LABS: Anion Gap 9 (12-20); Blood Urea Nitrogen 20 mg/dL (9-16); Calcium 8.9 mg/dL (8.4-10.2); Carbon Dioxide 26 mmol/L (22-29); Chloride 103 mmol/L (96-108); Creatinine Clr Calc Pharmacy 81.6; Estimated Glomerular Filt Rate > 60; Glucose Random 124 mg/dL (60-115); Iron 32 mcg/dL (45-160); Percent Iron Saturation 12 % (15-50); Potassium 4.3 mmol/L (3.3-5.1); Sodium 134 mmol/L (135-145); Total Iron Binding Capacity 265 mcg/dL (228-428); Unsaturated Iron Binding 233 ug/dL
[2023-12-23 07:32] VITALS: BP 142/63; PULSE 61; RESP 17; TEMP 36.4; O2SAT 97
[2023-12-23] MEDS: Metoprolol Succinate ER 25 MG TAB.ER.24H PO (08:04)
[2023-12-23] MEDS: Atorvastatin Calcium 40 MG TABLET PO (08:04)
[2023-12-23] MEDS: levETIRAcetam 500 MG TABLET PO (08:04)
[2023-12-23] MEDS: 0.9 % Sodium Chloride Flush 3 ML SYRINGE IVFLUSH (08:05)
--- NOTE | 2023-12-23 09:42 | PM.DS ---
DS: Providers Provider Date of Service: 12/23/23 Date of admission: 12/21/23 17:04 Primary care physician: Harsha Erickson MD Consults: 12/21/23 17:22 Consult to Gastroenterology Routine Consulting Provider: Abby Pack Reason for consultation: dark stool /mild anemia Has provider been notified: No DS: Diagnosis Discharge Diagnosis (1) Gastrointestinal hemorrhage with melena: Status: Acute (2) Hx of CABG: Status: Inactive (3) Hematochezia: Status: Acute (4) Near syncope: Status: Acute DS: Summary Hospital Course Hospital Course: History of presenting illness: Date of Service: 12/21/23 Chief Complaint: Near-syncope 83-year-old gentleman with past medical history significant for coronary artery disease status post three-vessel CABG in 2018, history of hypertension, hyperlipidemia, BPH, question of epilepsy, bilateral total knee arthroplasty, chronic back pain, former smoker on chronic twice daily Tylenol arthritis medication on baby aspirin presented to [facility] due to an episode of near-syncope according to patient and his at bedside patient was coming out of car when he felt lightheaded and fell down hitting his left elbow without loss of consciousness, no head injury, he denies associated symptoms of chest pain, no shortness of breath no recent bout of nausea, vomiting, diarrhea, no urinary symptoms of urgency frequency, no fevers or chills, patient had a similar episode of feeling lightheaded 9 days ago when he stood up from a table at a restaurant helped to the car by the supervisor nutritional yeast, patient noted to have 1 episode of dark stool with no associated epigastric discomfort no hematemesis in the emergency room workup showed a hematocrit of 33.3 no prior CBC is available for comparison, sodium 130, BUN of 35 normal creatinine, blood sugar of 120, normal orthostatic vitals, EKG showed no acute ischemic changes patient will be admitted to [facility] due to recurrent episode of near-syncope, mild anemia, and dark stools, with stool occult blood positive. Hospital course: 83-year-old gentleman with past medical history of coronary artery disease status post three-vessel CABG, hypertension, hyperlipidemia presented to [facility] due to 2 episodes of near-syncope in last 10 days and noted to have dark colored stool today hematocrit is low , baseline not available will admit patient to [facility] with diagnosis of near syncope and dark stools. Near-syncope admitted to telemetry unit symptoms likely due to anemia, tele monitor showed no arrhythmias, had negative orthostatic blood pressures patient had no chest pain had normal EKG no seizure-like activity noted sodium was mildly low but not significant to cause symptoms, TSH was 1.55 , iron studies not consistent with acute anemia , has mildly low iron, recommend to take foods rich in iron. Acute upper GI bleed with Dark-colored stools, guaiac positive, treated with IV Protonix, hematocrit was monitored closely and did not require blood transfusion, and Underwent upper endoscopy by Dr. Pack that showed: Esophagus: GE junction at 42 cm, diaphragm hiatus at 42 cm, normal mucosa Stomach: deep gastric ulcer noted on the posterior wall in the pre antral area, about 10 mm in diameter, bx taken and then ovesco clip used to close the defect, no active bleeding noted Biopsies were obtained from adjacent folds and random stomach . Grade 2 flap valve on retroflexed examination of the cardia. Duodenum: Normal bulb and descending duodenum, Ulcer likely related to aspirin use and Tylenol Arthritis, recommend Protonix 40 mg daily, and repeat upper endoscopy in 3-4 months to document healing, patient is recommended to avoid NSAIDs, excessive caffeine and to continue aspirin with food. He is recommended to obtain biopsy report and H pylori from primary care physician and from Dr. Pack. Acute hyponatremia low normal serum osmolality and urine osmolality likely due to excessive fluid intake, and following low-salt diet, recommend to limit fluids to 1.5 L, sodium improved to 134 upon discharge. History of coronary artery disease status post CABG recommend to continue home medications metoprolol, Lipitor and aspirin Seizure disorder continue home medication. Class 1 obesity recommend weight reduction. Time Attestation Discharge Coordination Time (in mins): 36 Quality: Safe Use of Opioids Does Pt have an Active Cancer Diagnosis on the Problem List?: No Quality: Stroke Does the patient have a stroke diagnosis?: No Physical Exam Vital Signs: Vital Signs: Last Vital Signs Temp 97.6 F 12/23/23 07:32 Pulse 61 12/23/23 07:32 Resp 17 12/23/23 07:32 BP 142/63 H 12/23/23 07:32 Pulse Ox 97 12/23/23 07:32 O2 Del Method Room Air 12/23/23 07:32 O2 Flow Rate 3 12/22/23 14:10 BMI result Body Mass Index 33.4 Const: Other: General awake alert x3, resting comfortably in no acute distress. Anicteric sclera Neck supple no JVD. CVS regular rate rhythm, Respiratory lungs clear to auscultation, no respiratory distress, no wheeze, no rhonchi. Gastrointestinal abdomen soft, non tender, bowel sounds audible, no guarding , no rigidity. Extremities no edema. Neuro non focal Skin no rash Psych appropriate affect DS: Data Data Completed and Pending Pending studies at discharge: Pending at discharge 12/22/23 13:51 Surgical [PTH] Routine Labs on day of discharge: Laboratory Results - last 24 hr 12/23/23 05:41 WBC 5.0 RBC 2.85 L Hgb 9.2 L Hct 27.0 L MCV 94.7 MCH 32.3 MCHC 34.1 RDW 12.7 Plt Count 188 MPV 8.8 L Absolute Nucleated RBC 0.000 Nucleated RBC % (auto) 0.0 Sodium 134 L Potassium 4.3 Chloride 103 Carbon Dioxide 26 Anion Gap 9 L BUN 20 H Creatinine 0.81 Estim Creat Clear Calc 81.6 Estimated GFR > 60 Random Glucose 124 H Calcium 8.9 Iron 32 L TIBC 265 % Saturation 12 L Unsat Iron Binding 233 Discharge Plan Discharge Anticipated Discharge Date/Time: 12/23/23 09:37 Patient Disposition: Home, Self-Care Discharge Diagnosis: Near-syncope Acute upper GI bleed/stomach ulcer nose Referrals: Harsha Erickson MD [Primary Care Provider] - 1 Week Discharge Medications: New omeprazole 40 mg capsule,delayed release(DR/EC) 40 mg PO DAILY Qty: 90 0RF Continued atorvastatin 40 mg tablet 40 mg PO DAILY levetiracetam 500 mg tablet 500 mg PO BID tamsulosin 0.4 mg capsule 0.4 mg PO BEDTIME metoprolol succinate 25 mg tablet extended release 24 hr 25 mg PO DAILY multivitamin Tablet 1 tab PO BEDTIME aspirin 81 mg Tablet,Chewable 81 mg PO DAILY Discontinued acetaminophen [Tylenol Arthritis] 650 mg Tablet Extended Release 650 mg PO BID Discharge Orders: Discharge Order (Routine); Ordered 12/23/23 Ordered By: Fadumo Cortes Diet: Advance to usual diet Activity on Discharge: As tolerated Stand Alone Forms: Patient Portal Discharge page Print Language: Rwandan Care Plan Goals: Avoid all NSAIDs and caffeine Take aspirin with food Take Prilosec 40 mg once daily before breakfast Drinks 6-8 glasses of fluids a day Take Tylenol 500 mg 1-2 tablets 3 times a day as needed for pain Take foods rich in iron like spinach, apples, watermelon Labs pending H pylori and gastric ulcer biopsy Health Concerns: CABG continue all home medication Plan of Treatment: Outpatient follow-up with Dr. Pack for repeat endoscopy in 3-4 months Outpatient follow-up with primary care physician Assessment: As above
--- NOTE | 2023-12-23 10:15 | MHC.CM.PN ---
Pt is medically cleared for D/C home self-care, pts to transport him home.
--- NOTE | 2023-12-23 17:08 | HO.POSTANES ---
Post Anesthesia Evaluation Post Anesthesia Evaluation Date of Service: 12/23/23 Vital Signs: Vital Signs Temp Pulse Resp BP Pulse Ox O2 Del Method 12/23/23 07:32 97.6 F 61 17 142/63 H 97 Room Air Anesthesia: Monitored Mental Status: Awake Pain Control: Satisfactory Nausea/Vomiting: None Hydration: Adequate Anesthesia-Related Issues: No Anes. Related Issues
== END 2023-12-23 11:58 | disposition home or self-care (01) | DRG 378 ==
LOC: HO.ED 15:38 → HO.IMC 17:27 → HO.EDOVER 17:59 → HO.IMC 12-22 07:27
PROVIDERS: Internal Medicine Gastroenterology; Physician Assistant; Admitting Provider Hospitalist; Emergency Provider Emergency Medicine; PCP Family Medicine; Visit Provider Hospitalist
PROC: 0DJ08ZZ Inspection of Upper Intestinal Tract, Via Natural or Artificial Opening Endoscopic (ICD-10-PCS; CPT 43235; principal; 2023-12-22 14:30)
DX: K25.4 Chronic or unspecified gastric ulcer with hemorrhage (principal); D62 Acute posthemorrhagic anemia; E87.1 Hypo-osmolality and hyponatremia; I25.10 Atherosclerotic heart disease of native coronary artery without angina pectoris; T39.015A Adverse effect of aspirin, initial encounter; Z95.1 Presence of aortocoronary bypass graft; G40.909 Epilepsy, unspecified, not intractable, without status epilepticus; E78.00 Pure hypercholesterolemia, unspecified; I10 Essential (primary) hypertension; E78.5 Hyperlipidemia, unspecified; E66.8 Other obesity; Z68.33 Body mass index [BMI] 33.0-33.9, adult; N40.0 Benign prostatic hyperplasia without lower urinary tract symptoms; Z87.891 Personal history of nicotine dependence; Z79.82 Long term (current) use of aspirin; Z79.899 Other long term (current) drug therapy
CPT/HCPCS: 43239; 36415; 80048; 80053; 81001; 82272; 83540; 83690; 83880; 83930; 83935; 84443; 84484; 85025; 85027; 85610; 85730; 86850; 86900; 86901; 88305; 88313; 88342; 93005; 99222; 99285; C1889; C9113; J1100; J1596; J2704

== ENCOUNTER → 2023-12-21 14:02 | Outpatient (BNV) | payer MEDICARE, SELFPAY | PROVIDERS: Admitting Provider Hospitalist; Emergency Provider Emergency Medicine; PCP Family Medicine; Visit Provider Internal Medicine | DX: R94.31 Abnormal electrocardiogram [ECG] [EKG] (principal) | CPT/HCPCS: 93010 ==

== ENCOUNTER → 2023-12-21 17:04 | Outpatient (BNV) | payer MEDICARE, SELFPAY | PROVIDERS: Admitting Provider Hospitalist; Emergency Provider Emergency Medicine; PCP Family Medicine; Visit Provider Hospitalist | DX: K92.1 Melena (principal); Z95.1 Presence of aortocoronary bypass graft; R55 Syncope and collapse | CPT/HCPCS: 99223; 99233; 99239 ==

== ENCOUNTER → 2023-12-21 17:04 | Outpatient (BNV) | payer MEDICARE, SELFPAY | PROVIDERS: Admitting Provider Hospitalist; Emergency Provider Emergency Medicine; PCP Family Medicine; Visit Provider Internal Medicine Gastroenterology | DX: Z95.1 Presence of aortocoronary bypass graft (principal); K92.1 Melena; D64.9 Anemia, unspecified; K25.9 Gastric ulcer, unspecified as acute or chronic, without hemorrhage or perforation | CPT/HCPCS: 43239; 99223 ==

== ENCOUNTER 2024-01-14 09:01 | Outpatient (REF) | payer MEDICARE, SELFPAY ==
[2024-01-14 10:53] LABS: MANUAL DIFF FLAG NO
[2024-01-14 11:08] LABS: Basophils Percent Auto 0.8 % (0-2); Eosinophils Absolute Auto 0.1 X10*3/uL (0.0-0.4); Eosinophils Percent Auto 3.2 % (0-4); Hematocrit 32.8 % (42.0-52.0); Hemoglobin 11.2 g/dl (14.0-18.0); Imm Gran Abs Auto 0.01 X10*3/uL (0.00-0.03); Imm Gran Pct Auto 0.3 % (0.0-0.4); Lymphocytes Absolute Auto 0.7 X10*3/uL (1.2-4.9); Lymphocytes Percent Auto 17.6 % (20-40); Mean Corpuscular HGB Conc 34.1 g/dl (31.0-36.0); Mean Corpuscular Hemoglobin 33.2 pg (27.0-33.0); Mean Corpuscular Volume 97.3 fL (80.0-98.0); Mean Platelet Volume 9.1 fL (9.4-12.4); Monocytes Absolute Auto 0.5 X10*3/uL (0.1-1.2); Monocytes Percent Auto 12.9 % (2-11); Neutrophils Absolute Auto 2.5 x10*3/uL (2.0-8.3); Neutrophils Percent Auto 65.2 % (45-73); Platelet Count 248 X10*3/uL (160-400); Red Blood Count 3.37 X10*6/uL (4.60-5.80); Red Cell Distribution Width 12.7 % (11.0-16.0)
[2024-01-14 11:18] LABS: White Blood Count 3.8 X10*3/uL (4.8-10.8)
[2024-01-14 12:08] LABS: Alanine Aminotransferase 18 U/L (0-40); Anion Gap 12 (12-20); Aspartate Amino Transferase 21 U/L (5-37); Blood Urea Nitrogen 10 mg/dL (9-16); Carbon Dioxide 25 mmol/L (22-29); Chloride 102 mmol/L (96-108); Cholesterol 124 mg/dL (<200); Estimated Glomerular Filt Rate > 60; HDL Cholesterol 49 mg/dL (>40); LDL Cholesterol Calculated 59 mg/dL (<100); Potassium 3.9 mmol/L (3.3-5.1); Sodium 135 mmol/L (135-145); Triglycerides 82 mg/dL (<150)
== END 2024-01-14 09:02 | disposition home or self-care (01) ==
LOC: HO.10HDL 09:01
PROVIDERS: Visit Provider Family Medicine
DX: I10 Essential (primary) hypertension (principal); E78.00 Pure hypercholesterolemia, unspecified; M06.9 Rheumatoid arthritis, unspecified; Z79.899 Other long term (current) drug therapy
CPT/HCPCS: 36415; 80051; 80061; 82565; 84450; 84460; 84520; 85025

== ENCOUNTER 2024-03-15 11:19 | Outpatient (REF) | payer MEDICARE, SELFPAY ==
[2024-03-15 13:15] LABS: MANUAL DIFF FLAG NO
[2024-03-15 13:30] LABS: Eosinophils Absolute Auto 0.2 X10*3/uL (0.0-0.4); Eosinophils Percent Auto 4.8 % (0-4); Hematocrit 37.7 % (42.0-52.0); Hemoglobin 12.8 g/dl (14.0-18.0); Imm Gran Abs Auto 0.02 X10*3/uL (0.00-0.03); Imm Gran Pct Auto 0.5 % (0.0-0.4); Lymphocytes Absolute Auto 0.9 X10*3/uL (1.2-4.9); Lymphocytes Percent Auto 22.1 % (20-40); Mean Corpuscular Hemoglobin 32.5 pg (27.0-33.0); Mean Corpuscular Volume 95.7 fL (80.0-98.0); Mean Platelet Volume 9.2 fL (9.4-12.4); Monocytes Absolute Auto 0.6 X10*3/uL (0.1-1.2); Monocytes Percent Auto 14.3 % (2-11); Neutrophils Absolute Auto 2.4 x10*3/uL (2.0-8.3); Neutrophils Percent Auto 57.3 % (45-73); Platelet Count 238 X10*3/uL (160-400); Red Blood Count 3.94 X10*6/uL (4.60-5.80); Red Cell Distribution Width 12.7 % (11.0-16.0); White Blood Count 4.2 X10*3/uL (4.8-10.8)
[2024-03-15 13:39] LABS: Iron 140 mcg/dL (45-160); Percent Iron Saturation 52 % (15-50); Total Iron Binding Capacity 271 mcg/dL (228-428); Unsaturated Iron Binding 131 ug/dL
== END 2024-03-15 11:20 | disposition home or self-care (01) ==
LOC: HO.10HDL 11:19
PROVIDERS: Visit Provider Family Medicine
DX: D50.9 Iron deficiency anemia, unspecified (principal)
CPT/HCPCS: 36415; 83540; 85025

== ENCOUNTER 2024-03-30 09:21 | Day surgery (SDC) | payer MEDICARE, SELFPAY ==
--- NOTE | 2024-03-29 12:00 | P.CONAN_ITS ---
Documented by User: Janessa Devine NP 03/29/24 12:05 HPI - Anesthesia Eval Consult details Narrative: 83yo M for Upper Endoscopy [facility] admit 12/2023 for Acute upper GI bleed with Dark-colored stools, guaiac positive, treated with IV Protonix, hematocrit was monitored closely and did not require blood transfusion, and Underwent upper endoscopy by Dr. Pack with MAC CAD s/p CABG x 3 in 2018 [facility] Past Medical History Medical History Gastric ulcer Osteoporosis Arthritis Syncope Dizziness Hypercholesteremia Coronary artery disease Surgical History Surgical History History of esophagogastroduodenoscopy (EGD) Hx of cardiac catheterization History of total hip replacement History of total knee replacement Hx of CABG Social History Social History Household Members: Spouse Housing: House Patient Tobacco Use Status: Former Tobacco user e-Cigarette/Vaping Use: Never Used Second Hand Smoke Exposure: No Use of substances other than those prescribed or required for medical reasons: No Are you DNR?: No Advance Directives: No Advance Directives Information Provided: Yes Advance Directives Date on File: 12/22/23 service: No Meds Allergies Allergy/AdvReac Type Severity Reaction Status Date / Time No Known Allergies Allergy Verified 03/30/24 09:48 Home Medications ?Medication ?Instructions ?Recorded ?Confirmed ?Last Taken ?Type atorvastatin 40 mg tablet 40 mg PO DAILY 12/21/23 03/30/24 12/21/23 History levetiracetam 500 mg tablet 500 mg PO BID 12/21/23 03/30/24 12/21/23 History metoprolol succinate 25 mg 25 mg PO DAILY 12/21/23 03/30/24 12/21/23 History tablet,extended release 24 hr multivitamin 1 tab PO BEDTIME 12/21/23 03/30/24 12/20/23 History tamsulosin 0.4 mg capsule 0.4 mg PO BEDTIME 12/21/23 03/30/24 12/20/23 History Exam Pertinent Lab Results Pertinent Lab Results: Laboratory Tests 01/14/24 03/15/24 09:10 11:22 WBC 4.2 L Hgb 12.8 L Hct 37.7 L Plt Count 238 Sodium 135 Potassium 3.9 Chloride 102 Carbon Dioxide 25 BUN 10 Creatinine 0.88 Narrative Narrative: EKG 12/2023 Vent. Rate : 063 BPM Atrial Rate : 063 BPM P-R Int : 180 ms QRS Dur : 098 ms QT Int : 390 ms P-R-T Axes : 025 022 028 degrees QTc Int : 399 ms Normal sinus rhythm Possible Inferior infarct , age undetermined Abnormal ECG No previous ECGs available Documented by User: Raeann Wylie MD 03/30/24 10:25 [facility] Past Medical History Medical History Gastric ulcer Osteoporosis Arthritis Syncope Dizziness Hypercholesteremia Coronary artery disease Family History Family history of problems with anesthesia: No Surgical History Surgical History History of esophagogastroduodenoscopy (EGD) Hx of cardiac catheterization History of total hip replacement History of total knee replacement Hx of CABG History of Problems with Anesthesia: No Social History Social History Household Members: Spouse Housing: House Patient Tobacco Use Status: Former Tobacco user e-Cigarette/Vaping Use: Never Used Second Hand Smoke Exposure: No Use of substances other than those prescribed or required for medical reasons: No Are you DNR?: No Advance Directives: No Advance Directives Information Provided: Yes Advance Directives Date on File: 12/22/23 service: No Meds Allergies Allergy/AdvReac Type Severity Reaction Status Date / Time No Known Allergies Allergy Verified 03/30/24 09:48 Home Medications ?Medication ?Instructions ?Recorded ?Confirmed ?Last Taken ?Type atorvastatin 40 mg tablet 40 mg PO DAILY 12/21/23 03/30/24 12/21/23 History levetiracetam 500 mg tablet 500 mg PO BID 12/21/23 03/30/24 12/21/23 History metoprolol succinate 25 mg 25 mg PO DAILY 12/21/23 03/30/24 12/21/23 History tablet,extended release 24 hr multivitamin 1 tab PO BEDTIME 12/21/23 03/30/24 12/20/23 History tamsulosin 0.4 mg capsule 0.4 mg PO BEDTIME 12/21/23 03/30/24 12/20/23 History Exam Airway Mallampati Class: III TM Dist: <=3cm Neck ROM: Limited Heart: rrrcta Assessment and Plan Assessment Anesthesia Assessment: Anesthesia Plan Discussed Final Anesthetic Review Family History of Problems with Anesthesia: No History of Problems with Anesthesia: No ASA Class: III Final Preanesthetic Review: Meds/Allgs Chart Reviewed, Consent Obtained/Reviewed and Anes Risks/Benef Reviewed Patient Risk: Intermediate Procedure Risk: Low Anesthetic Plan Anesthetic Plan: MAC: Disposition: Standard PACU
--- OUTSIDE RECORDS SUMMARY | 2024-03-30 09:23 | XMS_ITS | Patient Health Record ---
Author Organization [facility] Address [address] [place] [address] Care Team Providers Care Chemical Laboratory Scientist Name Role Phone Jos Casas MD Primary Care Provider YUSEF Downey Unavailable [phone] ALLERGIES Allergen (clinical drug ingredient) Drug/Non Drug Allergy documented on EMR Reaction Allergy Type Onset Date Status lisinopril lisinopril cough Drug Allergy Activ e methotrexate memory loss Drug Allergy Ac tive guaifenesin Mucinex lightheaded Drug Allergy Act opal REASON FOR REFERRAL No Information MEDICATIONS Medication SIG (Take, Route, Frequency, Duration) Notes Start Date End Date Status Keppra 500 MG 1 tablet Orally Active prednisoLONE 5 MG as directed Orally O nce a day Active Finasteride 5 MG 1 tablet Orally Once a day Active hydroCHLOROthiazide 100 MG as directed Orally BID Active Losartan Potassium 25 MG 1 tablet Orally Once a day Active Low-Dose Aspirin 81 MG 1 tablet Orally O nce a day Active Amoxicillin 500 MG 4 capsule Orally 1 h r prior to dental procedure 05/09/[address] 1 TABLET UNDE R THE TONGUE NEEDED EVERY 5 MINUTES UP TO 3 TIMES; CALL 9-1-1 IF NOT RESOLVED AFTER 2 TABLETS (THIS IS A MINIMUM OF A Sublingual for 90 Active SOCIAL HISTORY Tobacco Use: Social History Observation Description Date Details (start date - stop date) Former Smoker NA - NA Sex Assigned At : Social History Observation Description Sex Assigned At Unknown Tobacco Use/Smoking Question Answer Notes Current Smoking Status: former smoker Alcohol Screen (Audit-C) Question Answer Notes Did you have a drink containing alcohol in the p ast year? 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) Active confirmed History of tota l replacement of left hip joint (3782944524923164 ) Problem Incomplete tear of left rotator cuff (M75.112) Active confirmed 177362071 Problem Closed nondisplaced fracture of head of left radius, initial encounter (S52.125A) Active confirmed [id number] PLAN OF TREATMENT Pending Test Test Name Order Date Arthros Shoulder Decomp Subac 03/21/2018 XR Elbow 2 v LT 12/10/2020 XR Hip/Pelvis 2-3 v LT Unilat 03/31/2019 XR Hip/Pelvis 2-3 v LT Unilat 05/04/2019 XR Hip/Pelvis 2-3 v LT Unilat 04/01/2020 Insurance Providers Payer Name Payer Address Payer Phone Subscriber Number Group Number Insured Name Patient Relationship to Insured Coverage Start Date Coverage End Date BCBS Medicare PPO [address] [place] [address] [phone] [id number] Andrew Vaca Self - patient is the insured [facility] [address] [address] Andrew Vaca Self - patient is the insured Drug Test [address] [phone] Andrew Vaca Self - patient is the insured MEDICATIONS ADMINISTERED Medication Instructions Date of Administration Dosage Notes AspInj Large Joint Bursa UGI 01/28/2018 Depo Medrol 80 01/28/2018 80 mg Hymovis RT 02/20/2021 24 units Hymovis RT 02/27/2021 24 units Hymovis RT 03/06/2021 24 units MEDICAL (GENERAL) HISTORY Medical History History ICD Code arthritis hypertension heart disease Surgical History Surgery Date(Month/Year) bilateral carpal tunnel 2016 skin cancer removed from face Left THR - Remia 04-10-2019 Triple Bypass 09/2018 Hospitalization History Reason Date(Month/Year) see above
[2024-03-30 09:49] VITALS: BMI 31.6
[2024-03-30 10:20] VITALS: BP 150/62; PULSE 51; RESP 16; TEMP 36.6; O2SAT 96
[2024-03-30] MEDS: Lactated Ringers 1,000 ML 50 ML IVCONT (11:02)
--- NOTE | 2024-03-30 12:02 | P.HPSUR_ITS ---
Pre-Procedural Eval Section A - 24 Hr Update-Section A only Date of Service: 03/30/24 Section B - Complete if H&P > 30 days Chief Complaint: Acute gastric ulcer with hemorrhage Relevant Family History (Specify if Yes): No Relevant Social History: None Present Medications: see Short Stay Collaborative assessment Medical History: Significant History ( Gastric ulcer Osteoporosis Arthritis Syncope Dizziness Hypercholesteremia Coronary artery disease) History of Previous Operations: Relevant previous surgery/procedure and date(s) (History of esophagogastroduodenoscopy (EGD) Hx of cardiac catheterization History of total hip replacement History of total knee replacement Hx of CABG) Allergies: Allergies Allergy/AdvReac Type Severity Reaction Status Date / Time No Known Allergies Allergy Verified 03/30/24 09:48 Review of Systems Sugical H&P ROS: Negative: Constitution, Cardiovascular, Respiratory, Neurological, Psychiatric, Hem-Onc, Allergic/Immunologic, Gastrointestinal, Genitourinary, Musculoskeletal, Integumentary, Endocrine and Eyes/Ears/Nose/Thr oat Exam Surgical H&P Exam: Normal: HEENT, Normal: Heart, Normal: Lungs, Normal: Extremities, Normal: Abdomen, Normal: Skin and Normal: Neurological Plan Diagnosis/Plan: Unchanged I have reviewed the history and physical and performed a pertinent physical examination on my patient. No changes have occurred unless specified. EGD to check for ulcer healing. Time Spent With Patient Time: Total time managing care of this patient today ____ minutes.
--- NOTE | 2024-03-30 12:12 | W.PM.OPN ---
Operative Note Operative Note Date of Service: 03/30/24 Narrative: Procedure Description: EGD Indication: hx of gastric ulcer Anesthesia: MAC FLEXIBLE TRANSORAL UPPER GASTROINTESTINAL ENDOSCOPY UPPER ENDOSCOPY Consent: Indications for the procedure and potential complications of bleeding, perforation, reaction to medications and missed diagnosis were discussed with the patient and informed consent was obtained. Instrument: Olympus GIF H 190 J mid size upper endoscope Monitoring: Vital signs and clinical assessment, continuous EKG monitoring, Pulse oximetry, Carbon Dioxide monitoring and blood pressure monitoring were done throughout the procedure. Procedure: The patient was placed in the left lateral decubitis position and pre-procedure medications were administered and a bite block was placed. The endoscope was inserted into the mouth and advanced under direct vision to the third part of duodenum. A careful inspection was made as the upper endoscope was withdrawn including a retroflexed examination of the proximal stomach; Findings and interventions are described below. Findings: Larynx:normal Esophagus: GE junction at 42 cm, diaphragm hiatus at 42 cm, normal mucosa Stomach: inflammed gastric fold pre antral area with shallow small erosion noted in the place of the prior ulcer, bx were taken, no active bleeding noted. Grade 2 flap valve on retroflexed examination of the cardia. Duodenum: Normal bulb and descending duodenum, Intervention: Biopsies as noted above, Impression/Findings: almost healed gastric ulcer with residual erosion and erythema PLAN: cont aspirin make sure taking PPI daily and correctly i.e 20 min before breakfast on empty stomach then eat something if H pylori pos then treat
[2024-03-30 12:40] VITALS: BP 123/55; PULSE 46; RESP 16; TEMP 36.8; O2SAT 99
[2024-03-30 13:00] VITALS: BP 151/68; PULSE 49; RESP 18; TEMP 36.2; O2SAT 95
== END 2024-03-30 13:05 | disposition home or self-care (01) ==
PROVIDERS: PCP Family Medicine; Visit Provider Internal Medicine Gastroenterology
PROC: 0DJ08ZZ Inspection of Upper Intestinal Tract, Via Natural or Artificial Opening Endoscopic (ICD-10-PCS; CPT 43235; principal; 2024-03-30 12:10)
DX: K25.9 Gastric ulcer, unspecified as acute or chronic, without hemorrhage or perforation (principal); K44.9 Diaphragmatic hernia without obstruction or gangrene; I25.10 Atherosclerotic heart disease of native coronary artery without angina pectoris; Z95.1 Presence of aortocoronary bypass graft; E78.00 Pure hypercholesterolemia, unspecified; M81.0 Age-related osteoporosis without current pathological fracture; R55 Syncope and collapse; R42 Dizziness and giddiness; Z79.899 Other long term (current) drug therapy; Z87.891 Personal history of nicotine dependence
CPT/HCPCS: 43239; 88305; 88313; 88342; J1596; J2704

== ENCOUNTER → 2024-03-30 09:21 | Outpatient (BNV) | payer MEDICARE, SELFPAY | PROVIDERS: PCP Family Medicine; Visit Provider Internal Medicine Gastroenterology | DX: K25.9 Gastric ulcer, unspecified as acute or chronic, without hemorrhage or perforation (principal) | CPT/HCPCS: 43239 ==

== ENCOUNTER 2024-05-04 15:00 | Outpatient (REF) | payer MEDICARE, SELFPAY ==
--- NOTE | ~2024-05-04 | XR_ITS ---
EXAMINATION: XR CHEST CLINICAL INFORMATION: Cough and wheezing COMPARISON: None available. TECHNIQUE: 2 views of the chest were obtained. FINDINGS: Status post median sternotomy. Some minimal bibasilar atelectasis/scarring. There is a ill-defined opacity seen in the left upper lobe projecting over the distal end of the first rib which may be a compilation of shadows, but a lung nodule cannot be excluded. No other significant abnormality is noted involving the heart, lungs, mediastinum, bony thorax or soft tissues. XR/XR chest 2V IMPRESSION: No acute intrathoracic disease. Question of left upper lobe nodule. CT scan of the chest is recommended for further evaluation. Electronically signed by: Octavio Ngo MD 05/04/2024 05:03 PM EDT
== END 2024-05-04 15:01 | disposition home or self-care (01) ==
LOC: HO.XRAY 15:00
PROVIDERS: PCP Family Medicine; Visit Provider Family Medicine
DX: R05.9 Cough, unspecified (principal); R06.2 Wheezing
CPT/HCPCS: 71046

== ENCOUNTER 2024-09-08 11:41 | Outpatient (REF) | payer MEDICARE, SELFPAY ==
[2024-09-08 13:31] LABS: Alanine Aminotransferase 16 U/L (0-40); Anion Gap 9 (12-20); Aspartate Amino Transferase 26 U/L (5-37); Blood Urea Nitrogen 14 mg/dL (9-16); Carbon Dioxide 28 mmol/L (22-29); Chloride 105 mmol/L (96-108); Estimated Glomerular Filt Rate > 60; Potassium 4.1 mmol/L (3.3-5.1); Sodium 138 mmol/L (135-145)
[2024-09-13 09:23] LABS: Levetiracetam Keppra 23.7 mcg/mL (6.0-46.0)
== END 2024-09-08 11:42 | disposition home or self-care (01) ==
LOC: HO.10HDL 11:41
PROVIDERS: Visit Provider Family Medicine
DX: I10 Essential (primary) hypertension (principal); E78.00 Pure hypercholesterolemia, unspecified; Z79.899 Other long term (current) drug therapy
CPT/HCPCS: 36415; 80051; 80177; 82550; 82565; 84450; 84460; 84520

== ENCOUNTER 2025-06-05 08:54 | Outpatient (AMB) | payer MEDICARE, SELFPAY ==
--- NOTE | 2025-06-05 09:19 | MHC.OFFVIS ---
Intake Visit Reasons: Transient global amnesia Allergies No Known Allergies Allergy (Verified 03/30/24 09:48) Medication List - Last Reconciled 06/05/25 by Vijaya Hermosillo MD atorvastatin 40 mg PO DAILY metoprolol succinate ER 25 mg PO DAILY multivitamin 1 tab PO BEDTIME omeprazole 40 mg PO DAILY tamsulosin 0.4 mg PO BEDTIME HPI Comments Details: This is a 84-year-old right-handed man with a history of hyperlipidemia, coronary artery disease status post three-vessel coronary bypass, GERD and prostatism who is here for evaluation of transient episodes where he gets confused and has some memory problems. The 1st 2 episodes occurred in 2012 and lasted about 5-15 minutes. He appeared somewhat confused and was little frustrated that he could not remember what was going on. In a matter of minutes up to an hour all the symptoms resolved. After the 2nd episode in 2012 he saw a neurologist and had an ambulatory EEG and imaging studies all of which were apparently normal. He was put on a trial of Keppra 500 b.i.d. with a presumptive diagnosis of partial seizures. He has continued taking the Keppra 500 b.i.d. ever since for the last 12 years. He did fine after that till May 2025. Between May 16 and May 22 he has had 3 brief episodes which have also been under situation of stress related to his low back pain and his surgery. The last 2 episodes lasted less than 2 or 3 minutes. They occur at any time. These have occurred while he is still on Keppra. A even during that time his financial skills his level of alertness is unimpaired. He has chronic low back pain which has been acting up and he is scheduled for radiofrequency ablation in 3 weeks. [facility] Medical History (Updated 06/05/25 @ 09:39 by Vijaya Hermosillo MD) Transient global amnesia Gastric ulcer Osteoporosis Arthritis Syncope Dizziness Hypercholesteremia Coronary artery disease Surgical History History of esophagogastroduodenoscopy (EGD) Hx of cardiac catheterization History of total hip replacement History of total knee replacement Hx of CABG Social History Household Members: Spouse Housing: House Patient Tobacco Use Status: Former Tobacco user e-Cigarette/Vaping Use: Never Used Second Hand Smoke Exposure: No Advance Directives Date on File: 12/22/23 service: No Physical Exam Neuro Other: ?Mini Mental Status Exam Level of Consciousness:?Alert.? Orientation:?Knows correct year, month, date, day and season.?Knows correct city, county and state. Knows correct location and floor.? Registration:?Able to register 3 objects.? Attention:?Serial 7's performed accurately.? Recall:?Able to recall 3 out of 3 objects.? Language:?Normal spontaneous speech, fluency, repetition, naming, comprehension, reading, and writing.? Total Score:?30/30.? Neurological Abnormal neurological findings:??none.? Mental Status:?Alert and oriented X 3.?Normal attention, orientation, memory, and affect.? Cranial Nerves:?Pupils are equal, round and reactive to light. Fundoscopy shows normal disc bilaterally. External occular muscles are intact. Visual coates are full, no ptosis. Face is symmetrical, no facial weakness or droop. Facial sensations are normal. Tongue protrudes in midline. Palate elevates symmetrically. Shoulder shrugging is normal.? Motor Examination:?Normal muscle tone, bulk and strength.?No atrophy or fasciculations.?No drift of the extended upper extremities.?Deep tendon reflexes are 2+.?Plantars are flexor.? Motor Strength:? Proximal Muscles (out of 5):?5 Distal Muscles (out of 5):?5 Neck Flexors (out of 5):?5 Neck Extensors (out of 5):?5 Deltoid (out of 5):?5 Biceps (out of 5):?5 Triceps (out of 5):?5 Serratus Anterior (out of 5):?5 Wrist Extensors (out of 5):?5 APB (out of 5):?5 Finger Spread (out of 5):?5 Ileopsoas (out of 5):?5 Quadriceps (out of 5):?5 Hamstrings (out of 5):?5 Tibialis Anterior (out of 5):?5 Peronei (out of 5):?5 EDB (out of 5):?5 Gastrocnemius (out of 5):?5 Straight Leg Raising:?90 degrees.? Sensory Exam:?Normal light touch, temperature, pinprick, vibration and joint-position sensations.?Rhomberg sign is absent.? Coordination:?No ataxia,?no titubation,?[id number]-[id number]-dxco, ytub-[id number] test, and rapid alternating movements were normal.? Gait Exam:?Within normal limits.? Cerebellar Signs:?[id number]-ib-[id number] and pmna-[id number] is normal.?No dysdiadochokinesia.? Extrapyramidal System:?Minor tremor of extended upper extremities which has been present for a few years and causes no functional impairment. No?rigidity, normal facial expressions.?No bradykinesia. No bradyphrenia. Normal arm swing and posture. No propulsion or retropulsion.? Speech:?Normal,?no dysphasia or dysarthria.? General Examination GENERAL APPEARANCE:??normal,?in no acute distress?,?normal,?in no acute distress.? HEAD:??normocephalic,?atraumatic.? EYES:??sclera non-icteric,?conjunctiva clear.? EARS:??auditory canal clear,?tympanic membrane intact, clear.? NOSE:??no lesions.? ORAL CAVITY:??gums normal,?mucosa moist,?no lesions.? THROAT:??clear.? NECK/THYROID:??no cervical lymphadenopathy,?thyroid normal,?neck supple, full range of motion,?no carotid bruit.? SKIN:??no rashes,?no significant birthmarks.? HEART:??S1, S2 normal,?no murmurs?,?S1, S2 normal,?no murmurs.? LUNGS:??clear anteriorly and posteriorly?,?clear anteriorly and posteriorly.? CHEST:??no gross rib deformity,?clear to auscultation.? BACK:??normal exam of spine.? MUSCULOSKELETAL:??normal.? EXTREMITIES:??no edema?,?no edema.? PERIPHERAL PULSES:??normal.? PSYCH:??alert, oriented,?cognitive function intact,?cooperative with exam?,?alert, oriented,?cognitive function intact,?cooperative with exam.? Assessment & Plan Assessment & Plan (1) Partial seizure disorder: Code(s): G40.109 - Localization-related (focal) (partial) symptomatic epilepsy and epileptic syndromes with simple partial seizures, not intractable, without status epilepticus Category: Medical (2) Transient amnesia: Code(s): R41.3 - Other amnesia Category: Medical Plan Increase Keppra to 750 mg twice a day. The patient was offered an MRI and a 48 hour EEG but he has deferred that because his priority right now is to get his lumbar ablation done for the pain. He will call back if he wants to proceed with further workup. Medications: New levetiracetam (Keppra) 750 mg PO BID 180 tabs 3RF 90 days Coding Level of Care Code New Pt Level 5 (18685) Diagnoses Partial seizure disorder G40.109 Transient amnesia R41.3
--- OUTSIDE RECORDS SUMMARY | 2025-06-05 09:29 | XMS_ITS | Patient Health Record ---
Author Organization [facility] Address [address] [place] [address] Care Team Providers Care Scientific Informatics Analyst Name Role Phone JEANNIE EAST Primary Care Provider Naima Garcia Unavailable [phone] Allergies No Known Allergies Results Component Value Reference Range Notes Levetiracetam (Keppra), [id number] Reviewed date:05/14/2025 07:53:04 AM Interpretation: Performing Lab:[facility], [address] [facility], Phone - [phone], Director - MDJodry Notes/Report: Levetiracetam, S 15.6 10.0-40.0 ug/mL Comp. Metabolic Panel ([id number] Reviewed date:05/14/2025 07:53:16 AM Interpretation: Performing Lab:[facility], [address] [facility], Phone - [phone], Director - MDJodry Notes/Report: Glucose 97 70-99 mg/dL BUN 20 8-27 mg/dL Creatinine 1.04 0.76-1.27 mg/dL eGFR 71 >59 mL/min/1.73 BUN/Creatinine Ratio 19 10-24 Sodium 139 134-144 mmol/L Potassium 4.3 3.5-5.2 mmol/L Chloride 104 96-106 mmol/L Carbon Dioxide, Total 22 20-29 mmol/L Calcium 9.3 8.6-10.2 mg/dL Protein, Total 6.0 6.0-8.5 g/dL Albumin 3.9 3.7-4.7 g/dL Globulin, Total 2.1 1.5-4.5 g/dL Bilirubin, Total 0.5 0.0-1.2 mg/dL Alkaline Phosphatase 76 44-121 IU/L Effective May 21, 2025 Alkaline Phosphatase reference interval will be changing to: Age Male Female 0 - 5 days 47 - 127 47 - 127 6 - 10 days 29 - 242 29 - 242 11 - 20 days 109 - 357 109 - 357 21 - 30 days 94 - 494 94 - 494 1 - 2 months 149 - 539 149 - 539 3 - 6 months 131 - 452 131 - 452 7 - 11 months 117 - 401 117 - 401 12 months - 6 years 158 - 369 158 - 369 7 - 12 years 150 - 409 150 - 409 13 years 156 - 435 78 - 227 14 years 114 - 375 64 - 161 15 years 88 - 279 56 - 134 16 years 74 - 207 51 - 121 17 years 63 - 161 47 - 113 18 - 20 years 51 - 125 42 - 106 21 - 50 years 47 - 123 41 - 116 51 - 80 years 49 - 135 51 - 125 >80 years 48 - 129 48 - 129 AST (SGOT) 23 0-40 IU/L ALT (SGPT) 13 0-44 IU/L Lipid Panel-[id number] Reviewed date:05/14/2025 07:53:12 AM Interpretation: Performing Lab:[facility], [address] [facility], Phone - [phone], Director - Erika Notes/Report: Cholesterol, Total 124 100-199 mg/dL Triglycerides 62 0-149 mg/dL HDL Cholesterol 59 >39 mg/dL VLDL Cholesterol Kiel 13 5-40 mg/dL LDL Chol Calc (NIH) 52 0-99 mg/dL Albumin/Creatinine Ratio,[facility] ne-[id number] Reviewed date:05/14/2025 07:53:09 AM Interpretation: Performing Lab:[facility], [address] [facility], Phone - [phone], Director - Erika Notes/Report: Creatinine, Urine 68.2 Not Estab. mg/dL Albumin, Urine 4.4 Not Estab. ug/mL Alb/Creat Ratio 6 0-29 mg/g creat Normal: 0 - 29 Moderately increased: 30 - 300 Severely increased: >300 Levetiracetam (Keppra), [id number] Reviewed date:01/22/2025 06:14:35 PM Interpretation: Performing [facility], [address] [place] [address], Phone - [phone], Director - Erika Notes/Report: Levetiracetam, S 24.6 10.0-40.0 ug/mL Comp. Metabolic Panel ([id number] Reviewed date:01/22/2025 06:14:25 PM Interpretation: Performing Lab:[facility], [address] [place] [address], Phone - [phone], Director - Erika Notes/Report: Glucose 102 70-99 mg/dL BUN 16 8-27 mg/dL Creatinine 1.03 0.76-1.27 mg/dL eGFR 72 >59 mL/min/1.73 BUN/Creatinine Ratio 16 10-24 Sodium 135 134-144 mmol/L Potassium 4.8 3.5-5.2 mmol/L Chloride 99 96-106 mmol/L Carbon Dioxide, Total 21 20-29 mmol/L Calcium 9.3 8.6-10.2 mg/dL Protein, Total 5.9 6.0-8.5 g/dL Albumin 3.8 3.7-4.7 g/dL Globulin, Total 2.1 1.5-4.5 g/dL Bilirubin, Total 0.6 0.0-1.2 mg/dL Alkaline Phosphatase 70 44-121 IU/L AST (SGOT) 23 0-40 IU/L ALT (SGPT) 18 0-44 IU/L CBC With Differential/Platel et-[id number] Reviewed date:01/22/2025 06:14:22 PM Interpretation: Performing Lab:[facility], [address] [place] [address], Phone - [phone], Director - Erika Notes/Report: WBC 4.7 3.4-10.8 x10E3/uL RBC 3.91 4.14-5.80 x10E6/uL Hemoglobin 13.1 13.0-17.7 g/dL Hematocrit 39.3 37.5-51.0 % MCV 101 79-97 fL MCH 33.5 26.6-33.0 pg MCHC 33.3 31.5-35.7 g/dL RDW 12.5 11.6-15.4 % Platelets 235 150-450 x10E3/uL Neutrophils 64 Not Estab. % Lymphs 21 Not Estab. % Monocytes 11 Not Estab. % Eos 2 Not Estab. % Basos 1 Not Estab. % Neutrophils (Absolute) 3.1 1.4-7.0 x10E3/uL Lymphs (Absolute) 1.0 0.7-3.1 x10E3/uL Monocytes(Absolute) 0.5 0.1-0.9 x10E3/uL Eos (Absolute) 0.1 0.0-0.4 x10E3/uL Baso (Absolute) 0.0 0.0-0.2 x10E3/uL Immature Granulocytes 1 Not Estab. % Immature Grans (Abs) 0.0 0.0-0.1 x10E3/uL Reason For Referral Reason Please evaluate and treat. Diagnosis 1 Transient global amn esia (G45.4) Referral Organization [facility] Referring Provider First Name JEANNIE Referring Provider Last Name CRUZITO Referring Provider Speciality Internal M edicine Referred Provider Specialty Neurology General Notes Referral faxed, chiara tapia call patient to schedule appointment.Сергей Shannon 05/22/2025 12:31:56 PM > Referral Priority Routine Medications Medication SIG (Take, Route, Frequency, Duration) Notes Start Date End Date Status Multivitamin - 1 tablet Orally Once a day Active Atorvastatin Calcium 40 MG 1 tablet Orally Once a day Active Metoprolol Succinate ER 25 MG 1 tablet Orally Once a day take 1/2 tab once a day Active Tamsulosin HCl 0.4 MG 1 capsule Orally twice a day; Duration: 90 days Active Omeprazole 40 MG 1 capsule 1/2 to 1 hour before morning meal Orally Once a day Active levETIRAcetam 500 MG 1 tablet Orally every 12 hrs Active CoQ-10 300 mg once daily Active Immunizations Vaccine Route Administration Date Status Comme nts COVID 19 Moderna Unknown 08/17/2022 Administered COVID Moderna Unknown 07/11/2021 Administered COVID Moderna Unknown 03/25/2022 Administered Flu Unknown 06/27/2024 Administered Prevnar 20 Unknown 06/11/2022 Administered Shingrix Unknown 01/17/2021 Administered Shingrix Unknown 05/24/2021 Administered TDAP Unknown 07/26/2023 Administered Problems Problem Type SNOMED Code ICD Code Onset Dates Problem Status W/U Status Risk Notes Problem Obesity due to excess calories (128175709) Other obesity due to excess calories (E66.09) Active confirmed Problem Mixed hyperlipidemia (206388865) Mixed hyperlipidemia (E78.2) Active confirmed Problem Idiopathic generalized epilepsy (disorder) (95134350) Generalized idiopathic epilepsy and epileptic syndromes, not intractable, without status epilepticus (G40.309) Active confirmed Problem Transient global amnesia (448369353) 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) Active confirmed Problem Transient ischemic attack (548482402) 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) Active confirmed Problem Carpal tunnel syndrome (69129385) Carpal tunnel syndrome, right upper limb (G56.01) Active confirmed Problem Coronary arteriosclerosis of coronary artery bypass graft (336127862) Atherosclerosis of coronary artery bypass graft(s) without angina pectoris (I25.810) Active confirmed Problem Gastro-esophageal reflux disease without esophagitis (997272537) Gastro-esophageal reflux disease without esophagitis (K21.9) Active confirmed Problem Gastrointestinal hemorrhage (08592556) Gastrointestinal hemorrhage, unspecified (K92.2) Active confirmed Problem Degeneration of thoracolumbar intervertebral disc (25940986) Other intervertebral disc degeneration, thoracolumbar region (M51.35) Active confirmed Problem Total hip replacement Prosthesis (933303082) Presence of right artificial hip joint (Z96.641) Active confirmed Problem Artificial knee joint present (302551072308) Presence of artificial knee joint, bilateral (Z96.653) Active confirmed Problem Essential hypertension (26155106) Essential (primary) hypertension (I10) Active confirmed Problem Lower urinary tract symptoms due to benign prostatic hypertrophy (36688815397832) Benign prostatic hyperplasia with lower urinary tract symptoms (N40.1) Active confirmed Vital Signs Heart Rate 83 /min 02/19/2025 Temperature 96.3 degrees Fahrenheit 02/19/2025 Oximetry 94 % 02/19/2025 Blood pressure diastolic 80 mm Hg 02/19/2025 Height 5'9 in 02/19/2025 Blood pressure systolic 150 mm Hg 02/19/2025 Weight 221.5 lbs 02/19/2025 BMI 32.71 kg/m2 02/19/2025 Encounters Encounter Location Date Provider Diagnosis [facility] [address] [address] 12/06/2024 JEANNIE EAST Essential (primary) hypertension I10 ; Gastro-esophageal reflux disease without esophagitis K21.9 ; Mixed hyperlipidemia E78.2 ; Generalized idiopathic epilepsy and epileptic syndromes, not intractable, without status epilepticus G40.309 ; Carpal tunnel syndrome, right upper limb G56.01 ; Gastrointestinal hemorrhage, unspecified K92.2 ; Presence of artificial knee joint, bilateral Z96.653 ; Presence of right artificial hip joint Z96.641 ; Other intervertebral disc degeneration, thoracolumbar region M51.35 ; Other transient cerebral ischemic attacks and related syndromes G45.8 ; Other obesity due to excess calories E66.09 ; Dietary counseling and surveillance Z71.3 and Benign prostatic hyperplasia with lower urinary tract symptoms N40.[address] [place] [address] 01/22/2025 DENNIS GUL Dizziness and giddin ess R42 and Essential (primary) hypertension I10 [address] [place] [address] 02/19/2025 Naima Garcia Essential (primary) hypertension I10 and Benign prostatic hyperplasia with lower urinary tract symptoms N40.[address] [place] [address] 01/18/2025 DENNIS GUL Dizziness R42 ; Essential (primary) hypertension I10 and Encounter for therapeutic drug level monitoring Z51.[address] [place] [address] 05/21/2025 DENNIS GUL Assessments Encounter Date Diagnosis (ICD Code) Assessment Notes Treatment Notes Treatment Clinical Notes Section Notes 12/06/2024 Gastro-esophageal reflux disease without esophagitis (ICD-10 - K21.9) Andrew is a 84-year-old gentlemanwith hypertension, GERD, mixed hyperlipidemia, coronary artery disease/CABG time [address] [facility] cardiology, degenerative disc disease/lumbar stenosis and he follows with [facility], BPH with lower urinary tract symptoms, acid reflux, generalized idiopathic epilepsy and epilepsy syndrome diagnosed in 2012 currently on Keppra and he is stable. He also has multiple joint osteoarthritis and he follows up with [facility]. Plan is as follows Hypertension. Blood pressure reasonably controlled on metoprolol ER 25 mg 1 tablet daily. Check renal function, electrolytes and urine for microalbumin. Hyperlipidemia. Continue on atorvastatin 40 mg daily and check lipid panel. Coronary artery disease/CABG time 3. He is on the right medications. He follows up with [facility] cardiology. His last echocardiogram showed normal EF with grade 2 diastolic dysfunction and mild aortic and mitral insufficiency. He does not appear to be in volume overload. Advised low-sodium diet. He is exercising every day and he is asymptomatic. Peptic ulcer disease and GI bleed. He is not on NSAIDs or aspirin. He is currently on omeprazole 40 mg daily. Osteoarthritis multiple joint and degenerative disc disease. Follows up with [facility] and also go to [facility] for intra-facet injections. He also exercises and do stationary bike almost every day. History of TIA. He is on statins. No aspirin because of peptic ulcer disease. 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 It was diagnosed in 2012 and since then he is on Keppra and last Keppra levels were within normal limits. BPH with lower urinary tract symptoms. Currently on Flomax 0.4 mg daily and it is helping Obesity. Advised to lose 4-6 pounds a month. Diet restrictions discussed with the patient. Screening blood work ordered. He is up to date on 8 specific screening 12/06/2024 Essential (primary) hypertension (ICD-10 - I10) Andrew is a 84-year-old gentlemanwith hypertension, GERD, mixed hyperlipidemia, coronary artery disease/CABG time [address] [facility] cardiology, degenerative disc disease/lumbar stenosis and he follows with [facility], BPH with lower urinary tract symptoms, acid reflux, generalized idiopathic epilepsy and epilepsy syndrome diagnosed in 2012 currently on Keppra and he is stable. He also has multiple joint osteoarthritis and he follows up with [facility]. Plan is as follows Hypertension. Blood pressure reasonably controlled on metoprolol ER 25 mg 1 tablet daily. Check renal function, electrolytes and urine for microalbumin. Hyperlipidemia. Continue on atorvastatin 40 mg daily and check lipid panel. Coronary artery disease/CABG time 3. He is on the right medications. He follows up with [facility] cardiology. His last echocardiogram showed normal EF with grade 2 diastolic dysfunction and mild aortic and mitral insufficiency. He does not appear to be in volume overload. Advised low-sodium diet. He is exercising every day and he is asymptomatic. Peptic ulcer disease and GI bleed. He is not on NSAIDs or aspirin. He is currently on omeprazole 40 mg daily. Osteoarthritis multiple joint and degenerative disc disease. Follows up with [facility] and also go to [facility] for intra-facet injections. He also exercises and do stationary bike almost every day. History of TIA. He is on statins. No aspirin because of peptic ulcer disease. 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 It was diagnosed in 2012 and since then he is on Keppra and last Keppra levels were within normal limits. BPH with lower urinary tract symptoms. Currently on Flomax 0.4 mg daily and it is helping Obesity. Advised to lose 4-6 pounds a month. Diet restrictions discussed with the patient. Screening blood work ordered. He is up to date on 8 specific screening 01/18/2025 Dizziness (ICD-10 - R42) 01/22/2025 Dizziness and giddiness (ICD-10 - R42) Andrew is a 84-year-old gentleman with CABG time 3 and he follows up with 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 Vaughan , acid reflux, multiple joint osteoarthritis,de generative disc disease and [facility], right carpal tunnel syndrome and history of decompression, obesity is here for dizziness and had a mechanical fall a few days ago. Dizziness. Most likely dehydration/ortho static. He mentioned he does not drink enough water. Secondly his blood pressure in both right and left upper extremity is 102/70 which is slightly towards the lower side. We advised to take metoprolol ER 25 mg and take half a tablet and monitor blood pressure and pulse at home and follow-up in 4 weeks and bring your blood pressure monitor for comparison. Coronary artery disease/CABG. Stable and continue atorvastatin 40 mg daily and will change metoprolol ER 25 mg and take half a tablet daily. BPH. Continue on Flomax 0.4 mg daily. Seizure disorder. Continue Keppra and we are waiting for Keppra levels. 02/19/2025 Essential (primary) hypertension (ICD-10 - I10) Andrew is a 84-year-old gentleman with CABG time 3 and he follows up with 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 Vaughan , acid reflux, multiple joint osteoarthritis,de generative disc disease and he follows up with [facility] for intra-articular injection, right carpal tunnel syndrome and history of decompression, obesity is here for BP check. Plan as follows: HTN. BP on repeat is WNL. COntinue on Metoprolol 25mg half tablet devika;y. Increase water intake and reduce salt intake are advised. Coronary artery disease/CABG. Stable and continue atorvastatin 40 mg daily and will change metoprolol ER 25 mg and take half a tablet daily. BPH. Continues to have nocturnal sxs, increased Flomax 0.4 twice a day. Advised on fall precaution and to stand up slowly Seizure disorder. Continue Keppra, recent level within normal limit General concerns have been discussed I have rendered the services for this patient under direct supervision of Dr. East, who did not see the patient but was available upon request 02/19/2025 Benign prostatic hyperplasia with lower urinary tract symptoms (ICD-10 - N40.1) Andrew is a 84-year-old gentleman with CABG time 3 and he follows up with 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 Vaughan , acid reflux, multiple joint osteoarthritis,de generative disc disease and he follows up with [facility] for intra-articular injection, right carpal tunnel syndrome and history of decompression, obesity is here for BP check. Plan as follows: HTN. BP on repeat is WNL. COntinue on Metoprolol 25mg half tablet devika;y. Increase water intake and reduce salt intake are advised. Coronary artery disease/CABG. Stable and continue atorvastatin 40 mg daily and will change metoprolol ER 25 mg and take half a tablet daily. BPH. Continues to have nocturnal sxs, increased Flomax 0.4 twice a day. Advised on fall precaution and to stand up slowly Seizure disorder. Continue Keppra, recent level within normal limit General concerns have been discussed I have rendered the services for this patient under direct supervision of Dr. East, who did not see the patient but was available upon request 01/22/2025 Essential (primary) hypertension (ICD-10 - I10) Andrew is a 84-year-old gentleman with CABG time 3 and he follows up with 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 Vaughan , acid reflux, multiple joint osteoarthritis,de generative disc disease and he follows up with [facility] for intra-articular injection, right carpal tunnel syndrome and history of decompression, obesity is here for dizziness and had a mechanical fall a few days ago. Dizziness. Most likely dehydration/ortho static. He mentioned he does not drink enough water. Secondly his blood pressure in both right and left upper extremity is 102/70 which is slightly towards the lower side. We advised to take metoprolol ER 25 mg and take half a tablet and monitor blood pressure and pulse at home and follow-up in 4 weeks and bring your blood pressure monitor for comparison. Coronary artery disease/CABG. Stable and continue atorvastatin 40 mg daily and will change metoprolol ER 25 mg and take half a tablet daily. BPH. Continue on Flomax 0.4 mg daily. Seizure disorder. Continue Keppra and we are waiting for Keppra levels. 01/18/2025 Essential (primary) hypertension (ICD-10 - I10) 12/06/2024 Mixed hyperlipidemia (ICD-10 - E78.2) Andrew is a 84-year-old gentlemanwith hypertension, GERD, mixed hyperlipidemia, coronary artery disease/CABG time [address] [facility] cardiology, degenerative disc disease/lumbar stenosis and he follows with [facility], BPH with lower urinary tract symptoms, acid reflux, generalized idiopathic epilepsy and epilepsy syndrome diagnosed in 2012 currently on Keppra and he is stable. He also has multiple joint osteoarthritis and he follows up with [facility]. Plan is as follows Hypertension. Blood pressure reasonably controlled on metoprolol ER 25 mg 1 tablet daily. Check renal function, electrolytes and urine for microalbumin. Hyperlipidemia. Continue on atorvastatin 40 mg daily and check lipid panel. Coronary artery disease/CABG time 3. He is on the right medications. He follows up with [facility] cardiology. His last echocardiogram showed normal EF with grade 2 diastolic dysfunction and mild aortic and mitral insufficiency. He does not appear to be in volume overload. Advised low-sodium diet. He is exercising every day and he is asymptomatic. Peptic ulcer disease and GI bleed. He is not on NSAIDs or aspirin. He is currently on omeprazole 40 mg daily. Osteoarthritis multiple joint and degenerative disc disease. Follows up with [facility] and also go to [facility] for intra-facet injections. He also exercises and do stationary bike almost every day. History of TIA. He is on statins. No aspirin because of peptic ulcer disease. 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 It was diagnosed in 2012 and since then he is on Keppra and last Keppra levels were within normal limits. BPH with lower urinary tract symptoms. Currently on Flomax 0.4 mg daily and it is helping Obesity. Advised to lose 4-6 pounds a month. Diet restrictions discussed with the patient. Screening blood work ordered. He is up to date on 8 specific screening 12/06/2024 Generalized idiopathic epilepsy and epileptic syndromes, not intractable, without status epilepticus (ICD-10 - G40.309) Andrew is a 84-year-old gentlemanwith hypertension, GERD, mixed hyperlipidemia, coronary artery disease/CABG time [address] [facility] cardiology, degenerative disc disease/lumbar stenosis and he follows with [facility], BPH with lower urinary tract symptoms, acid reflux, generalized idiopathic epilepsy and epilepsy syndrome diagnosed in 2012 currently on Keppra and he is stable. He also has multiple joint osteoarthritis and he follows up with [facility]. Plan is as follows Hypertension. Blood pressure reasonably controlled on metoprolol ER 25 mg 1 tablet daily. Check renal function, electrolytes and urine for microalbumin. Hyperlipidemia. Continue on atorvastatin 40 mg daily and check lipid panel. Coronary artery disease/CABG time 3. He is on the right medications. He follows up with [facility] cardiology. His last echocardiogram showed normal EF with grade 2 diastolic dysfunction and mild aortic and mitral insufficiency. He does not appear to be in volume overload. Advised low-sodium diet. He is exercising every day and he is asymptomatic. Peptic ulcer disease and GI bleed. He is not on NSAIDs or aspirin. He is currently on omeprazole 40 mg daily. Osteoarthritis multiple joint and degenerative disc disease. Follows up with [facility] and also go to [facility] for intra-facet injections. He also exercises and do stationary bike almost every day. History of TIA. He is on statins. No aspirin because of peptic ulcer disease. 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 It was diagnosed in 2012 and since then he is on Keppra and last Keppra levels were within normal limits. BPH with lower urinary tract symptoms. Currently on Flomax 0.4 mg daily and it is helping Obesity. Advised to lose 4-6 pounds a month. Diet restrictions discussed with the patient. Screening blood work ordered. He is up to date on 8 specific screening 01/18/2025 Encounter for therapeutic drug level monitoring (ICD-10 - Z51.81) 12/06/2024 Carpal tunnel syndrome, right upper limb (ICD-10 - G56.01) Andrew is a 84-year-old gentlemanwith hypertension, GERD, mixed hyperlipidemia, coronary artery disease/CABG time [address] [facility] cardiology, degenerative disc disease/lumbar stenosis and he follows with [facility], BPH with lower urinary tract symptoms, acid reflux, generalized idiopathic epilepsy and epilepsy syndrome diagnosed in 2012 currently on Keppra and he is stable. He also has multiple joint osteoarthritis and he follows up with [facility]. Plan is as follows Hypertension. Blood pressure reasonably controlled on metoprolol ER 25 mg 1 tablet daily. Check renal function, electrolytes and urine for microalbumin. Hyperlipidemia. Continue on atorvastatin 40 mg daily and check lipid panel. Coronary artery disease/CABG time 3. He is on the right medications. He follows up with [facility] cardiology. His last echocardiogram showed normal EF with grade 2 diastolic dysfunction and mild aortic and mitral insufficiency. He does not appear to be in volume overload. Advised low-sodium diet. He is exercising every day and he is asymptomatic. Peptic ulcer disease and GI bleed. He is not on NSAIDs or aspirin. He is currently on omeprazole 40 mg daily. Osteoarthritis multiple joint and degenerative disc disease. Follows up with [facility] and also go to [facility] for intra-facet injections. He also exercises and do stationary bike almost every day. History of TIA. He is on statins. No aspirin because of peptic ulcer disease. 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 It was diagnosed in 2012 and since then he is on Keppra and last Keppra levels were within normal limits. BPH with lower urinary tract symptoms. Currently on Flomax 0.4 mg daily and it is helping Obesity. Advised to lose 4-6 pounds a month. Diet restrictions discussed with the patient. Screening blood work ordered. He is up to date on 8 specific screening 12/06/2024 Gastrointestinal hemorrhage, unspecified (ICD-10 - K92.2) Andrew is a 84-year-old gentlemanwith hypertension, GERD, mixed hyperlipidemia, coronary artery disease/CABG time [address] [facility] cardiology, degenerative disc disease/lumbar stenosis and he follows with [facility], BPH with lower urinary tract symptoms, acid reflux, generalized idiopathic epilepsy and epilepsy syndrome diagnosed in 2012 currently on Keppra and he is stable. He also has multiple joint osteoarthritis and he follows up with [facility]. Plan is as follows Hypertension. Blood pressure reasonably controlled on metoprolol ER 25 mg 1 tablet daily. Check renal function, electrolytes and urine for microalbumin. Hyperlipidemia. Continue on atorvastatin 40 mg daily and check lipid panel. Coronary artery disease/CABG time 3. He is on the right medications. He follows up with [facility] cardiology. His last echocardiogram showed normal EF with grade 2 diastolic dysfunction and mild aortic and mitral insufficiency. He does not appear to be in volume overload. Advised low-sodium diet. He is exercising every day and he is asymptomatic. Peptic ulcer disease and GI bleed. He is not on NSAIDs or aspirin. He is currently on omeprazole 40 mg daily. Osteoarthritis multiple joint and degenerative disc disease. Follows up with [facility] and also go to [facility] for intra-facet injections. He also exercises and do stationary bike almost every day. History of TIA. He is on statins. No aspirin because of peptic ulcer disease. 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 It was diagnosed in 2012 and since then he is on Keppra and last Keppra levels were within normal limits. BPH with lower urinary tract symptoms. Currently on Flomax 0.4 mg daily and it is helping Obesity. Advised to lose 4-6 pounds a month. Diet restrictions discussed with the patient. Screening blood work ordered. He is up to date on 8 specific screening 12/06/2024 Presence of artificial knee joint, bilateral (ICD-10 - Z96.653) Andrew is a 84-year-old gentlemanwith hypertension, GERD, mixed hyperlipidemia, coronary artery disease/CABG time [address] [facility] cardiology, degenerative disc disease/lumbar stenosis and he follows with [facility], BPH with lower urinary tract symptoms, acid reflux, generalized idiopathic epilepsy and epilepsy syndrome diagnosed in 2012 currently on Keppra and he is stable. He also has multiple joint osteoarthritis and he follows up with [facility]. Plan is as follows Hypertension. Blood pressure reasonably controlled on metoprolol ER 25 mg 1 tablet daily. Check renal function, electrolytes and urine for microalbumin. Hyperlipidemia. Continue on atorvastatin 40 mg daily and check lipid panel. Coronary artery disease/CABG time 3. He is on the right medications. He follows up with [facility] cardiology. His last echocardiogram showed normal EF with grade 2 diastolic dysfunction and mild aortic and mitral insufficiency. He does not appear to be in volume overload. Advised low-sodium diet. He is exercising every day and he is asymptomatic. Peptic ulcer disease and GI bleed. He is not on NSAIDs or aspirin. He is currently on omeprazole 40 mg daily. Osteoarthritis multiple joint and degenerative disc disease. Follows up with [facility] and also go to [facility] for intra-facet injections. He also exercises and do stationary bike almost every day. History of TIA. He is on statins. No aspirin because of peptic ulcer disease. 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 It was diagnosed in 2012 and since then he is on Keppra and last Keppra levels were within normal limits. BPH with lower urinary tract symptoms. Currently on Flomax 0.4 mg daily and it is helping Obesity. Advised to lose 4-6 pounds a month. Diet restrictions discussed with the patient. Screening blood work ordered. He is up to date on 8 specific screening 12/06/2024 Presence of right artificial hip joint (ICD-10 - Z96.641) Andrew is a 84-year-old gentlemanwith hypertension, GERD, mixed hyperlipidemia, coronary artery disease/CABG time [address] [facility] cardiology, degenerative disc disease/lumbar stenosis and he follows with [facility], BPH with lower urinary tract symptoms, acid reflux, generalized idiopathic epilepsy and epilepsy syndrome diagnosed in 2012 currently on Keppra and he is stable. He also has multiple joint osteoarthritis and he follows up with [facility]. Plan is as follows Hypertension. Blood pressure reasonably controlled on metoprolol ER 25 mg 1 tablet daily. Check renal function, electrolytes and urine for microalbumin. Hyperlipidemia. Continue on atorvastatin 40 mg daily and check lipid panel. Coronary artery disease/CABG time 3. He is on the right medications. He follows up with [facility] cardiology. His last echocardiogram showed normal EF with grade 2 diastolic dysfunction and mild aortic and mitral insufficiency. He does not appear to be in volume overload. Advised low-sodium diet. He is exercising every day and he is asymptomatic. Peptic ulcer disease and GI bleed. He is not on NSAIDs or aspirin. He is currently on omeprazole 40 mg daily. Osteoarthritis multiple joint and degenerative disc disease. Follows up with [facility] and also go to [facility] for intra-facet injections. He also exercises and do stationary bike almost every day. History of TIA. He is on statins. No aspirin because of peptic ulcer disease. 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 It was diagnosed in 2012 and since then he is on Keppra and last Keppra levels were within normal limits. BPH with lower urinary tract symptoms. Currently on Flomax 0.4 mg daily and it is helping Obesity. Advised to lose 4-6 pounds a month. Diet restrictions discussed with the patient. Screening blood work ordered. He is up to date on 8 specific screening 12/06/2024 Other intervertebral disc degeneration, thoracolumbar region (ICD-10 - M51.35) Andrew is a 84-year-old gentlemanwith hypertension, GERD, mixed hyperlipidemia, coronary artery disease/CABG time [address] [facility] cardiology, degenerative disc disease/lumbar stenosis and he follows with [facility], BPH with lower urinary tract symptoms, acid reflux, generalized idiopathic epilepsy and epilepsy syndrome diagnosed in 2012 currently on Keppra and he is stable. He also has multiple joint osteoarthritis and he follows up with [facility]. Plan is as follows Hypertension. Blood pressure reasonably controlled on metoprolol ER 25 mg 1 tablet daily. Check renal function, electrolytes and urine for microalbumin. Hyperlipidemia. Continue on atorvastatin 40 mg daily and check lipid panel. Coronary artery disease/CABG time 3. He is on the right medications. He follows up with [facility] cardiology. His last echocardiogram showed normal EF with grade 2 diastolic dysfunction and mild aortic and mitral insufficiency. He does not appear to be in volume overload. Advised low-sodium diet. He is exercising every day and he is asymptomatic. Peptic ulcer disease and GI bleed. He is not on NSAIDs or aspirin. He is currently on omeprazole 40 mg daily. Osteoarthritis multiple joint and degenerative disc disease. Follows up with [facility] and also go to [facility] for intra-facet injections. He also exercises and do stationary bike almost every day. History of TIA. He is on statins. No aspirin because of peptic ulcer disease. 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 It was diagnosed in 2012 and since then he is on Keppra and last Keppra levels were within normal limits. BPH with lower urinary tract symptoms. Currently on Flomax 0.4 mg daily and it is helping Obesity. Advised to lose 4-6 pounds a month. Diet restrictions discussed with the patient. Screening blood work ordered. 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 cardiology, degenerative disc disease/lumbar stenosis and he follows with [facility], BPH with lower urinary tract symptoms, acid reflux, generalized idiopathic epilepsy and epilepsy syndrome diagnosed in 2012 currently on Keppra and he is stable. He also has multiple joint osteoarthritis and he follows up with [facility]. Plan is as follows Hypertension. Blood pressure reasonably controlled on metoprolol ER 25 mg 1 tablet daily. Check renal function, electrolytes and urine for microalbumin. Hyperlipidemia. Continue on atorvastatin 40 mg daily and check lipid panel. Coronary artery disease/CABG time 3. He is on the right medications. He follows up with [facility] cardiology. His last echocardiogram showed normal EF with grade 2 diastolic dysfunction and mild aortic and mitral insufficiency. He does not appear to be in volume overload. Advised low-sodium diet. He is exercising every day and he is asymptomatic. Peptic ulcer disease and GI bleed. He is not on NSAIDs or aspirin. He is currently on omeprazole 40 mg daily. Osteoarthritis multiple joint and degenerative disc disease. Follows up with [facility] and also go to [facility] for intra-facet injections. He also exercises and do stationary bike almost every day. History of TIA. He is on statins. No aspirin because of peptic ulcer disease. 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 It was diagnosed in 2012 and since then he is on Keppra and last Keppra levels were within normal limits. BPH with lower urinary tract symptoms. Currently on Flomax 0.4 mg daily and it is helping Obesity. Advised to lose 4-6 pounds a month. Diet restrictions discussed with the patient. Screening blood work ordered. He is up to date on 8 specific screening 12/06/2024 Other obesity due to excess calories (ICD-10 - E66.09) Andrew is a 84-year-old gentlemanwith hypertension, GERD, mixed hyperlipidemia, coronary artery disease/CABG time [address] [facility] cardiology, degenerative disc disease/lumbar stenosis and he follows with [facility], BPH with lower urinary tract symptoms, acid reflux, generalized idiopathic epilepsy and epilepsy syndrome diagnosed in 2012 currently on Keppra and he is stable. He also has multiple joint osteoarthritis and he follows up with [facility]. Plan is as follows Hypertension. Blood pressure reasonably controlled on metoprolol ER 25 mg 1 tablet daily. Check renal function, electrolytes and urine for microalbumin. Hyperlipidemia. Continue on atorvastatin 40 mg daily and check lipid panel. Coronary artery disease/CABG time 3. He is on the right medications. He follows up with [facility] cardiology. His last echocardiogram showed normal EF with grade 2 diastolic dysfunction and mild aortic and mitral insufficiency. He does not appear to be in volume overload. Advised low-sodium diet. He is exercising every day and he is asymptomatic. Peptic ulcer disease and GI bleed. He is not on NSAIDs or aspirin. He is currently on omeprazole 40 mg daily. Osteoarthritis multiple joint and degenerative disc disease. Follows up with [facility] and also go to [facility] for intra-facet injections. He also exercises and do stationary bike almost every day. History of TIA. He is on statins. No aspirin because of peptic ulcer disease. 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 It was diagnosed in 2012 and since then he is on Keppra and last Keppra levels were within normal limits. BPH with lower urinary tract symptoms. Currently on Flomax 0.4 mg daily and it is helping Obesity. Advised to lose 4-6 pounds a month. Diet restrictions discussed with the patient. Screening blood work ordered. He is up to date on 8 specific screening 12/06/2024 Dietary counseling and surveillance (ICD-10 - Z71.3) Andrew is a 84-year-old gentlemanwith hypertension, GERD, mixed hyperlipidemia, coronary artery disease/CABG time [address] [facility] cardiology, degenerative disc disease/lumbar stenosis and he follows with [facility], BPH with lower urinary tract symptoms, acid reflux, generalized idiopathic epilepsy and epilepsy syndrome diagnosed in 2012 currently on Keppra and he is stable. He also has multiple joint osteoarthritis and he follows up with [facility]. Plan is as follows Hypertension. Blood pressure reasonably controlled on metoprolol ER 25 mg 1 tablet daily. Check renal function, electrolytes and urine for microalbumin. Hyperlipidemia. Continue on atorvastatin 40 mg daily and check lipid panel. Coronary artery disease/CABG time 3. He is on the right medications. He follows up with [facility] cardiology. His last echocardiogram showed normal EF with grade 2 diastolic dysfunction and mild aortic and mitral insufficiency. He does not appear to be in volume overload. Advised low-sodium diet. He is exercising every day and he is asymptomatic. Peptic ulcer disease and GI bleed. He is not on NSAIDs or aspirin. He is currently on omeprazole 40 mg daily. Osteoarthritis multiple joint and degenerative disc disease. Follows up with [facility] and also go to [facility] for intra-facet injections. He also exercises and do stationary bike almost every day. History of TIA. He is on statins. No aspirin because of peptic ulcer disease. 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 It was diagnosed in 2012 and since then he is on Keppra and last Keppra levels were within normal limits. BPH with lower urinary tract symptoms. Currently on Flomax 0.4 mg daily and it is helping Obesity. Advised to lose 4-6 pounds a month. Diet restrictions discussed with the patient. Screening blood work ordered. He is up to date on 8 specific screening 12/06/2024 Benign prostatic hyperplasia with lower urinary tract symptoms (ICD-10 - N40.1) Andrew is a 84-year-old gentlemanwith hypertension, GERD, mixed hyperlipidemia, coronary artery disease/CABG time [address] [facility] cardiology, degenerative disc disease/lumbar stenosis and he follows with [facility], BPH with lower urinary tract symptoms, acid reflux, generalized idiopathic epilepsy and epilepsy syndrome diagnosed in 2012 currently on Keppra and he is stable. He also has multiple joint osteoarthritis and he follows up with [facility]. Plan is as follows Hypertension. Blood pressure reasonably controlled on metoprolol ER 25 mg 1 tablet daily. Check renal function, electrolytes and urine for microalbumin. Hyperlipidemia. Continue on atorvastatin 40 mg daily and check lipid panel. Coronary artery disease/CABG time 3. He is on the right medications. He follows up with [facility] cardiology. His last echocardiogram showed normal EF with grade 2 diastolic dysfunction and mild aortic and mitral insufficiency. He does not appear to be in volume overload. Advised low-sodium diet. He is exercising every day and he is asymptomatic. Peptic ulcer disease and GI bleed. He is not on NSAIDs or aspirin. He is currently on omeprazole 40 mg daily. Osteoarthritis multiple joint and degenerative disc disease. Follows up with [facility] and also go to [facility] for intra-facet injections. He also exercises and do stationary bike almost every day. History of TIA. He is on statins. No aspirin because of peptic ulcer disease. 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 It was diagnosed in 2012 and since then he is on Keppra and last Keppra levels were within normal limits. BPH with lower urinary tract symptoms. Currently on Flomax 0.4 mg daily and it is helping Obesity. Advised to lose 4-6 pounds a month. Diet restrictions discussed with the patient. Screening blood work ordered. He is up to date on 8 specific screening Plan Of Treatment Future Test Test Name Order Date Albumin/Creatinine Ratio,[id number] Lipid Panel-[id number] 12/06/2024 Comp. Metabolic Panel [id number] Levetiracetam (Keppra), [id number] Next Appt Details Provider Name:JEANNIE Moya CRUZITO , 06/07/2025 11:00:00 AM, [address] [place] [address], [id number], Insurance Providers Payer Name Payer Address Payer Phone Subscriber Number Group Number Insured Name Patient Relationship to Insured Coverage Start Date Coverage End Date [facility] [address] [place] [phone] [id number] Andrew Vaca Self - patient is the insured Medical (General) History Medical History History ICD Code TIA- 2013 PUD in 2023 EGD SCC behind right ear and see Dr Vaughan hypertension Hyperlipidemia Obesity BPH with lower urinary tract symptoms Arthritis of multiple joints and he follows up with [facility] Degenerative disc disease/dariana mbar stenosis and he follows with [facility] for intra-facet injections Surgical History Surgery Date(Month/Year) CABG TIME 3 2017 [facility]
--- OUTSIDE RECORDS SUMMARY | 2025-06-05 09:29 | XMS_ITS | Clinical Summary ---
Author Organization [address] [facility] Address [address] [place] [address] Phone Care Team Providers Care Studio Camera Operator Name Role Phone Harsha Erickson MD Primary Care Provider [phone] Allergies No known active allergies Medications atorvastatin (LIPITOR) 40 mg tablet Take 40 mg by mouth daily. Active levETIRAcetam (KEPPRA) 500 mg tablet Take 1 tablet (500 mg total) by mouth 2 (two) times a day. Active metoprolol succinate (TOPROL-XL) 25 mg 24 hr tablet Take 0.5 tablets (12.5 mg total) by mouth 1 (one) time each day. Active multivitamin (MULTIPLE VITAMINS ORAL) Take by mouth. Active omeprazole (PriLOSEC) [address] capsule Take 1 capsule (40 mg total) by mouth 1 (one) time each day. Do not crush or chew. Active ubidecarenone (COQ-10 ORAL) Take 300 mg by mouth 1 (one) time each day. Active clopidogreL (PLAVIX) 75 mg tablet Take 1 tablet (75 mg total) by mouth 1 (one) time each day. 90 each 1 05/03/2025 Active Active Problems Problem Noted Date Diagnosed Date Basal cell carcinoma (BCC) of left mormonism region 12/21/2024 Aortic stenosis 04/03/2022 Overview (10/20/2024): - echo 03/2024 showed normal LVEF 60-65%, grade II diastolic dysfunction, moderately dilated LA, normal RV size and function, mild with peak/mean gradient of 24.2/13mmHg, mild MR and TR with normal PASP, and normal aortic root for body size. When compared to echo 05/2022, there has been a slight increase in gradients across the aortic valve Assessment & Plan (10/20/2024 3:30 PM EST): The patient has mild , which is unlikely to be contributing much to his SOB. He has a preserved S2. His SOB is likely splinting due to his back discomfort. Will update his echo this summer to follow his aortic gradients. Warning signs of progressive SOB discussed with patient. He will notify me of any changes in his current condition. HLD (hyperlipidemia) 03/31/2022 Assessment & Plan (10/20/2024 3:31 PM EST): I do not have a recent lipid profile. Labs requested from PCP's office. HTN (hypertension) 03/31/2022 Assessment & Plan (10/20/2024 3:30 PM EST): Well controlled BP in office today on current dose BB. 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 His SOB seems to be related to his back as it is not reproducible in all exertional situations. He is no longer on ASA due to significant GIB. Continue BB and statin. Requesting recent labs from his PCP. Encounters Date Type Department Care Team Description 05/03/2025 10:20 AM EDT Office Visit [facility] [address] [place] [address] Johnie Lyman MD Coronary artery disease involving [place] coronary artery of [place] heart without angina pectoris (Primary Dx); Pulmonary valve disorder; S/P CABG x 3 04/16/2025 1:00 PM EDT Ancillary Procedure [facility] [address] [place] [id number] Hypertension, unspecified type; S/P CABG x 3; Nonrheumatic aortic valve stenosis from Last 3 Months Surgical History Surgery Date Site/Laterality Comments OTHER SURGICAL HISTORY 09/23/2018 PROCEDURE: CO CABG W/ARTERIAL GRAFT THREE ARTERIAL GRAFTS OTHER SURGICAL HISTORY Bilateral PROCEDURE: HISTORY OTHER; COMMENT: CTS surgeries CARPAL TUNNEL RELEASE 2015 Bilateral PROCEDURE: HISTORICAL CARPAL TUNNEL REL Medical History Medical History Date Comments BPH (benign prostatic hyperplasia) DX:BPH (benign prostatic hyperplasia) Epilepsy ([facility]/HCC V24, CMS/HCC V28) DX:Epilepsy ([facility]) Osteoarthritis DX:Osteoarthriti s RA (rheumatoid arthritis) ([facility]/HCC V24, CMS/[facility] V28) DX:RA (rheumatoid arthritis) ([facility]) Chronic back pain DX:Chronic katharine k pain Covid-19 DX:COVID-19 TIA (transient ischemic attack) 03/2013 DX:TIA (transient ischemic attack) Pneumonia 10/2014 DX:Pneumonia Family History Medical History Relation Name Comments Heart attack Father Alzheimer's disease Mother Other: Left Ventricular Dysfunction Paternal Grandmoth er Relation Name Status Comments Father Mother Paternal Grandmother Social History Tobacco Use Types Packs/Day Years Used Date Smoking Tobacco: Former Cigarettes Q uit: 09/06/1997 Smokeless Tobacco: Never Alcohol Use Standard Drinks/Week Comments Yes 1 (1 standard drink = 0.6 oz pur e alcohol) every night Sex and Gender Information Value Date Recorded Sex Assigned at Not on file Legal Sex Male 6:09 PM EST Gender Identity Not on file Sexual Orientation Not on file Obstetrics History Last Filed Vital Signs Vital Sign Reading Time Taken Comments Blood Pressure 130/70 05/03/2025 10:32 AM EDT Pulse 57 05/03/2025 10:32 AM EDT Temperature 36 C (96.8 F) 01/15/2025 11:36 AM EDT Respiratory Rate 20 01/15/2025 11:36 AM EDT Oxygen Saturation 98% 05/03/2025 10:32 AM EDT Inhaled Oxygen Concentration - - Weight 103 kg (228 lb) 05/03/2025 10:32 AM EDT Height 175.3 cm (5' 9 ) 05/03/2025 10:32 AM EDT Body Mass Index 33.67 05/03/2025 10:32 AM EDT Plan of Treatment Health Maintenance Due Date Last Done Comments RSV Immunization Adult Patients (1 - 1-dose 75+ series) 2015 Cholesterol Screening (Lipid Panel) 08/15/2022 07/28/2017 Falls Risk Assessment 08/15/2022 Medicare Annual Wellness Visit 08/15/2022 Social Influencers of Health Screening 08/15/2022 Hypertension/CHF/CAD Annual BMP Blood Test 08/16/2022 Depression Screening 09/06/2024 COVID-19 Vaccine (4 - 2024-2 6 season) 2025 08/17/2022, 03/25/2022, 07/11/2021 Influenza Vaccine (#1) 2025 06/27/2024 DTaP,Tdap,and Td Vaccines (2 - Td or Tdap) 07/26/2033 07/26/2023 Zoster Vaccines Completed 05/24/2021, 01/17/2021 Pneumococcal Vaccine: 50+ Years Completed 06/11/2022 HIB Vaccines Aged Out No longer eligi ble based on patient's age to complete this topic HPV Vaccines Aged Out No longer eligi ble based on patient's age to complete this topic Hepatitis A Vaccines Aged Out No long er eligible based on patient's age to complete this topic Hepatitis B Vaccines Aged Out No long er eligible based on patient's age to complete this topic IPV Vaccines Aged Out No longer eligi ble based on patient's age to complete this topic MMR Vaccines Aged Out No longer eligi ble based on patient's age to complete this topic Meningococcal ACWY Vaccine Aged Out N o longer eligible based on patient's age to complete this topic Meningococcal B Vaccine Aged Out No l onger eligible based on patient's age to complete this topic RSV Immunization Patients Under 20 months Aged Out No longer eligible b ased on patient's age to complete this topic Varicella Vaccines Aged Out No longer eligible based on patient's age to complete this topic Procedures Procedure Name Priority Date/Time Associated Diagnosis Comments TRANSTHORACIC ECHOCARDIOGRAM (TTE) COMPLETE W/ CONTRAST Routine 04/16/2025 1:45 PM EDT Hypertension, unspecified type S/P CABG x 3 Nonrheumatic aortic valve stenosis from Last 3 Months Results * (ABNORMAL) TRANSTHORACIC ECHOCARDIOGRAM (TTE) COMPLETE W/ CONTRAST (04/16/2025 1:45 PM EDT) LV EDV (A2C) 74 mL CV PACS LV EDV (A4C) 88 mL CV PACS LV Diastolic Volume (BP) 81 62 - 150 mL CV PACS LV ESV (A2C) 33 mL CV PACS LV ESV (A4C) 31 mL CV PACS LV Systolic Volume (BP) 32 21 - 61 mL CV PACS IVSD 1.3(A) 0.6 - 1.0 cm CV PACS LVIDD 5.2 4.2 - 5.8 cm CV PACS LVIDS 3.5 2.5 - 4.0 cm CV PACS LVOT Diameter 2.3 cm CV PACS LVOT Mean [place] 0.7 m/s CV PACS LVOT Mean Grad 2 mmHg CV PACS LVOT Mean Grad 2 mmHg CV PACS LVOT Mean Grad 2 mmHg CV PACS LVOT Mean Grad 2 mmHg CV PACS LVOT Peak VTI 24.5 cm CV PACS LVOT Peak [place] 1.1 m/s CV PACS LVOT Peak Gradient 5 mmHg CV PACS LVPWD 1.3(A) 0.6 - 1.0 cm CV PACS MV E' Tissue Velocity Lateral 8 cm/s CV PACS MV E' Tissue Velocity Septal 5 cm/s CV PACS Ejection Fraction (A2C) 56 % CV PACS Ejection Fraction (A4C) 65 % CV PACS Ejection Fraction (BP) 61 % CV PACS LVOT Area 4.2 cm2 CV PACS LVOT Stroke Volume 102 mL CV PACS Left Atrium Minor [place] 7.1 cm CV PACS Left Atrium Major [place] 7.0 cm CV PACS LA Area Sys (A2C) 23 cm2 CV PACS LA Area Sys (A4C) 31 cm2 CV PACS LA Volume (BP) 82 mL CV PACS LA Size 6.1 cm CV PACS RA Area 24.5 cm2 CV PACS RA 2D Volume 86 mL CV PACS AV Mean Gradient 16 mmHg CV PACS Ao VTI 69.4 cm CV PACS AV Peak [place] 2.8 m/s CV PACS AV Peak Gradient 31 mmHg CV PACS AV Area Continuity Equation 1.5 cm2 CV PACS AV Area Peak Velocity 1.6 cm2 CV PACS Aortic Sinus Valsalva 3.9 cm CV PACS Ascending Aorta 3.2 cm CV PACS IVC Proximal 2.1 cm CV PACS MV Deceleration [place] 2.7 m/s2 CV PACS E Wave Deceleration Time 329(A) 119 - 242 ms CV PACS MV PHT 97 ms CV PACS MV Peak A [place] 1.17 m/s CV PACS MV Peak E [place] 0.88 m/s CV PACS MV Mean Gradient 2 mmHg CV PACS MV Mean Gradient 2 mmHg CV PACS MV Mean Gradient 2 mmHg CV PACS MV VTI 47.6 cm CV PACS Mitral Valve Max Velocity 1.1 m/s CV PACS Mitral Valve Max Velocity 1.1 m/s CV PACS MV Peak Gradient 5 mmHg CV PACS MV Area PHT 2.3 cm2 CV PACS MV Area Continuity Equation 2.1 cm2 CV PACS PV Acceleration Time 81 ms CV PACS PV Acceleration Time 123 ms CV PACS PV Acceleration Time 102 ms CV PACS PV Mean Gradient 2 mmHg CV PACS PV VTI 23.7 cm CV PACS PV Peak Velocity 0.9 m/s CV PACS PV Peak Gradient 3 mmHg CV PACS RV Diastolic Basal Dimension 4.7(A) 2.5 - 4.1 cm CV PACS RV S' 8 cm/s CV PACS TAPSE 26 mm CV PACS TR Peak Velocity 3.33 m/s CV PACS TR Peak Gradient 44 mmHg CV PACS E/E' Ratio Septal 18 CV PACS E/E' Ratio Averaged 14 CV PACS Relative Wall Thickness ratio 0.50 CV PACS LVOT:AV VTI Index 0.35 CV PACS FS 33 % CV PACS LV Mass 2D 278 g CV PACS MV VTI:LVOT VTI ratio 1.9 CV PACS LVOT flow 291 mL/s CV PACS AV Velocity Ratio 0.39 CV PACS E/A Ratio 0.8 CV PACS E/E' Ratio Lateral 11 CV PACS BSA 2.22 m2 CV PACS LV Diastolic Volume Index (BP) 37 34 - 74 mL/m2 CV PACS LV Systolic Volume Index (BP) 15 11 - 31 mL/m2 CV PACS LV EDV Index (A4C) 41 mL/m2 CV PACS LV ESV Index (A4C) 14 mL/m2 CV PACS LV EDV Index (A2C) 34 mL/m2 CV PACS LV ESV Index (A2C) 15 mL/m2 CV PACS LA Volume Index (BP) 38 mL/m2 CV PACS LVIDD Index 2.40 cm/m2 CV PACS LVIDS Index 1.61 cm/m2 CV PACS LV Mass Index 2D 128(A) 50 - 102 g/m2 CV PACS LVOT Stroke Index 47 mL/m2 CV PACS LA Dimension Index 2D 2.8 cm/m2 CV PACS RA 2D Volume Index 40(A) 18 - 32 mL/m2 CV PACS NISHATN Index (VTI) 0.68 cm2/m2 CV PACS NISHANT Index (Pk [place]) 0.74 cm2/m2 CV PACS Ascending Aorta Index 1.47 cm/m2 CV PACS Right Ventricular Peak Systolic Pressure 52 mmHg CV PACS Est. RA Pressure 8 mmHg CV PACS Anatomical Region Laterality Modality Ultrasound Narrative 04/17/2025 8:53 AM EDT Left ventricle cavity size is normal. There is mild hypertrophy. Systolic function is normal with an ejection fraction of 55-60%. There are no regional LV wall motion abnormalities Moderate pulmonic regurgitation Compared to the prior study, aortic valve findings are similar; the pulmonic regurgitation was not appreciated on the prior study although could be due to differences in imaging technique Left Ventricle Left ventricle cavity size is normal. There is mild hypertrophy. Systolic function is normal with an ejection fraction of 55-60%. There are no regional LV wall motion abnormalities. There is abnormal septal motion consistent with post-operative status. Right Ventricle Right ventricle cavity appears normal. Systolic function is normal. Left Atrium Left atrium cavity is mildly dilated. Right Atrium Right atrium cavity is normal. IVC/SVC Inferior vena cava structure is normal. RA pressures is estimated to be 8 mmHg (IVC diameter <21 mm and decreases <50% during inspiration). Mitral Valve The leaflets are mildly thickened. There is mild annular calcification. There is trace regurgitation. There is no evidence of mitral valve stenosis. Tricuspid Valve Tricuspid valve structure is normal. There is mild regurgitation with a central jet. The right ventricular systolic pressure is mildly elevated. Aortic Valve The aortic valve is trileaflet. The leaflets are moderately thickened. There is no significant regurgitation. There is mild stenosis. Pulmonic Valve There is moderate pulmonic valve regurgitation. Ascending Aorta The aorta appears normal in size. Pericardium Pericardium appears normal. There is no pericardial effusion. Study Details Overall the study quality was technically difficult. Definity contrast was given to enhance imaging. Dorinda Padilla NP CV ECHO PROCEDURES Final Result from Last 3 Months Insurance BLUE CROSS - [place] MEDICARE ADVANTAGE Care Teams Studio Camera Operator Relationship Specialty Start Date End Date Harsha Erickson MD [address] [place] [address] [address] [place] [address] PCP - General Internal Medicine 02/03/22
--- OUTSIDE RECORDS SUMMARY | 2025-06-05 09:29 | XMS_ITS | Patient Health Record ---
Author Organization [facility] Address [address] [place] [address] Care Team Providers Care Pulp Refiner Operator Name Role Phone Jos Casas MD Primary Care Provider YUSEF Downey Unavailable [phone] Allergies Allergen (clinical drug ingredient) Drug/Non Drug Allergy documented on EMR Reaction Allergy Type Onset Date Status lisinopril lisinopril cough Drug Allergy Activ e methotrexate memory loss Drug Allergy Ac tive guaifenesin Mucinex lightheaded Drug Allergy Act opal Reason For Referral No Information Medications Medication SIG (Take, Route, Frequency, Duration) [...] TABLETS (THIS IS A MINIMUM OF A Sublingual; Duration: 90 Active Social History Tobacco Use: Social History Observation Description Date Details (start date - stop date) Former Smoker NA - NA Tobacco Use/Smoking Question Answer Notes Current Smoking Status: former smoker Alcohol Screen (Audit-C) Question Answer Notes Did you have a drink containing alcohol in the p ast year? Yes Points 0 Interpretation Negative Problems Problem Type SNOMED Code ICD Code Onset Dates Problem Status W/U Status Risk Notes Problem Chronic pain (37425553) Other chronic pain (G89.29) Active confirmed Problem Primary osteoarthritis (443398027) Unilateral primary osteoarthritis, right knee (M17.11) Active confirmed Problem Contracture of right knee joint (disorder) (612859718110290) Contracture, right knee (M24.561) Active confirmed Problem Osteoarthritis of knee (617929096) Primary osteoarthritis of right knee (M17.11) Active confirmed Problem History of total replacement of left hip joint (3854083500939895 ) 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) Active confirmed Problem Partial thickness rotator cuff tear (426073120) Incomplete tear of left rotator cuff (M75.112) Active confirmed Problem Closed fracture of head of radius (77939754) Closed nondisplaced fracture of head of left radius, initial encounter (S52.125A) Active confirmed Plan Of Treatment Pending Test Test Name Order Date Arthros Shoulder Decomp Subac 03/21/2018 XR Elbow 2 v LT 12/10/2020 XR Hip/Pelvis 2-3 v LT Unilat 03/31/2019 XR Hip/Pelvis 2-3 v LT Unilat 05/04/2019 Insurance Providers Payer Name Payer Address Payer Phone Subscriber Number Group Number Insured Name Patient Relationship to Insured Coverage Start Date Coverage End Date BCBS Medicare PPO [address] [place] [address] [phone] [id number] Andrew Vaca Self - patient is the insured [facility] [employer] Assistance [address] [address] Andrew Vaca Self - patient is the insured Drug Test [address] [address] Andrew Vaca Self - patient is the insured Medications Administered Medication Instructions Date of Administration Dosage Notes AspInj Large Joint Bursa UGI 01/28/2018 Depo Medrol 80 01/28/2018 80 mg Hymovis RT 02/20/2021 24 units Hymovis RT 02/27/2021 24 units Hymovis RT 03/06/2021 24 units Medical (General) History Medical History History ICD Code arthritis hypertension heart disease Surgical History Surgery Date(Month/Year) bilateral carpal tunnel 2016 skin cancer removed from face Left THR - Remia 8-5-2019 Triple Bypass 09/2018 Hospitalization History Reason Date(Month/Year) see above
== END 2025-06-05 09:46 | disposition home or self-care (01) ==
LOC: HO.HSM 08:55
PROVIDERS: PCP Family Medicine; Visit Provider Psychiatry & Neurology Neurology
DX: G40.109 Localization-related (focal) (partial) symptomatic epilepsy and epileptic syndromes with simple partial seizures, not intractable, without status epilepticus (principal); R41.3 Other amnesia
CPT/HCPCS: 99204

== ENCOUNTER → 2025-06-05 08:54 | Outpatient (BNVA) | payer MEDICARE, SELFPAY | PROVIDERS: PCP Family Medicine; Visit Provider Psychiatry & Neurology Neurology | DX: G40.109 Localization-related (focal) (partial) symptomatic epilepsy and epileptic syndromes with simple partial seizures, not intractable, without status epilepticus (principal); R41.3 Other amnesia | CPT/HCPCS: 99202 ==